=== PATIENT | female | born 1960 | race Caucasian/White ===

== ENCOUNTER 2022-07-23 05:13 | Emergency (ER) | payer OTHER, SELFPAY ==
[2022-07-23] VITALS (10 sets, daily range): BP systolic 124–144; BP diastolic 74–91; PULSE 68–100; RESP 14–24; TEMP 36.5; O2SAT 97–100
--- NOTE | ~2022-07-23 | XR_ITS ---
EXAMINATION: XR chest 2V DATE: 07/23/2022 06:21 INDICATION: Chest pain TECHNIQUE: frontal and lateral views of the chest were obtained. COMPARISON: Chest radiograph dated 03/03/2019 FINDINGS: Calcified nodule in the left midlung zone consistent with old granulomatous disease. No other airspac e opacities, pulmonary edema, pleural effusion or pneumothorax. Mild cardiomegaly. Plate and screw fi xation for lower cervical anterior spinal fusion. IMPRESSION: 1. Mild cardiomegaly. Reviewed, dictated and finalized at location A. IMPRESSION: 1. Mild cardiomegaly.
--- NOTE | 2022-07-23 05:21 | ECG_ITS ---
Measurements Intervals [place] Rate: 81 P: VA: 0 QRS: 12 QRSD: 82 T: 36 QT: 371 QTc: 432 Interpretive Statements ATRIAL FIBRILLATION ABNORMAL ECG COMPARED TO ECG 09/14/2019 09:14:02 ATRIAL FIBRILLATION NOW PRESENT Electronically Signed On 07-23-2022 6:35:35 CDT by Ebenezer Wick D.O.
--- NOTE | 2022-07-23 06:12 | ED.ARRPALP ---
HPI - Arrhythmia/Palpitations General Chief Complaint: Arrhythmia/Palpitations Stated Complaint: patient states i'm in afib Time Seen by Provider: 07/23/22 05:43 History of Present Illness HPI narrative: This is a 61-year-old female with past medical history of paroxysmal A. fib on Eliquis, who presents to the emergency department complaining of not feeling right . Patient states over the last day and a half she has felt increasing fatigue and dyspnea on exertion. This morning approximately an hour prior to arrival she woke at her usual time and noted palpitations. She denies chest pain however her symptoms were concerning and she came in for evaluation. She denies other recent illness and is vaccinated for the coronavirus. Related Data Home Medications Medication Instructions Recorded Confirmed rosuvastatin 10 mg tablet 10 mg PO DAILY 09/08/19 09/08/19 apixaban 5 mg tablet (Eliquis) 5 mg PO BID 09/20/21 Allergies Allergy/AdvReac Type Severity Reaction Status Date / Time sulfamethoxazole Allergy Intermediate Hives Verified 07/23/22 05:41 [From Bactrim] trimethoprim [From Bactrim] Allergy Intermediate Hives Verified 07/23/22 05:41 amoxicillin Allergy Unknown rash- Has Verified 07/23/22 05:41 taken Amoxicillin since. ciprofloxacin Allergy Unknown Nausea Verified 07/23/22 05:41 fluoxetine Allergy Unknown Asthma Verified 07/23/22 05:41 iodine Allergy Unknown Unknown Verified 07/23/22 05:41 Sulfa (Sulfonamide Allergy Unknown Unknown Verified 07/23/22 05:41 Antibiotics) sulfamethizole Allergy Unknown Unknown Verified 07/23/22 05:41 Review of Systems Review of Systems: CONSTITUTIONAL: Denies fever, chills, or sweats. EYES: Denies visual changes, redness, or discharge. ENT: Denies rhinorrhea, congestion, sore throat, or otalgia. CARDIOVASCULAR: Chest pressure, palpitations; chronic edema unchanged from baseline RESPIRATORY: Intermittent cough and dyspnea. GASTROINTESTINAL: Denies abdominal pain, nausea, vomiting, or diarrhea. GENITOURINARY: Denies dysuria or hematuria. SKIN: Denies rash or itching. MUSCULOSKELETAL: Denies back pain, joint pain, or myalgia. NEUROLOGIC: Denies headache, numbness, dizziness, or weakness. PSYCHIATRIC: Denies anxiety or depression. [facility] Past Medical History Medical History Afib Depression Gastric ulcer Hypercholesterolemia Hyperlipemia Hypertension Obesity Surgical History Surgical History Hx of eye surgery states hx of multiple eye surgeries S/P cervical spinal fusion states c4-6 fusion 1998 Family History Family History Grandparent Hypertension Family history of elevated blood lipids Family history of coronary artery disease, Onset Age: 72 Other Family history of malignant melanoma Social History Social History Smoking status: Never smoker Second hand tobacco smoke exposure: No Alcohol intake: current Drinks per week: 0 (rarely a few times a year) Substance use type: does not use Gender identity (if verbalized by the patient): Female Spiritual care concerns: No Agree to blood products: Yes Exam Narrative: GENERAL: Well-developed, well-nourished, appears anxious HEAD: Normocephalic, atraumatic. EYES: PERRLA and EOMI. ENT: Nares clear, no rhinorrhea or epistaxis. Mucous membranes moist. Oropharynx without tonsillar hypertrophy exudate or other lesions. NECK: Supple. No adenopathy or masses. No carotid bruits or JVD CHEST: Clear to auscultation. No respiratory distress. No wheezes rales or rhonchi HEART: Irregularly irregular. No murmur heard. Normal peripheral pulses. ABDOMEN: Soft, nontender, nondistended, normal active bowel sounds. EXTREMITIES: Normal range of motion. No edema
[2022-07-23] MEDS: ASPIRIN 81 MG CHEWABLE TABLET 324 MG PO (06:34)
[2022-07-23 06:44] LABS: Basophils Percent Auto 0.3 % (0.2-1.2); Eosinophils Absolute Auto 0.1 K/mm3 (0-0.3); Eosinophils Percent Auto 1.7 % (0-4.4); Hematocrit 41.9 % (37.0-47.0); Hemoglobin 13.7 g/dL (12.0-15.0); Immature Granulocyte Absolute 0.04 K/mm3 (0.00-0.031); Immature Granulocyte Percent A 0.6 % (0-0.5); Lymphocytes Absolute Auto 2.71 K/mm3 (0.9-3.2); Lymphocytes Percent Auto 40.8 % (18.3-44.2); Mean Corpuscular HGB Conc 32.7 g/dl (32-36); Mean Corpuscular Volume 91.9 fl (80-100); Mean Platelet Volume 8.8 fl (7.4-10.4); Monocytes Absolute Auto 0.6 K/mm3 (0.1-0.6); Monocytes Percent Auto 8.7 % (2.6-8.5); Neutrophils Absolute Auto 3.2 K/mm3 (1.3-6.7); Neutrophils Percent Auto 47.9 % (45.5-73.1); Platelet Count Result 279 k/mm3 (150-375); Red Blood Count 4.56 M/mm3 (4.2-5.4); Red Cell Distribution Width 14.6 % (11.5-14.5); White Blood Count 6.7 K/mm3 (4.5-10.0)
[2022-07-23 06:56] LABS: INR 1.2; Prothrombin Time 14.7 Seconds (11.1-14.7)
[2022-07-23 06:57] LABS: Alanine Aminotransferase 25 U/L (6-35); Albumin Level 4.1 g/dL (3.5-5.1); Alkaline Phosphatase 81 U/L (38-126); Anion Gap 13 mmol/L (8-16); Aspartate Amino Transferase 29 U/L (14-36); Bilirubin,Total 0.4 mg/dL (0.2-1.3); Blood Urea Nitrogen 14 mg/dL (7-17); Calcium 8.7 mg/dL (8.4-10.2); Carbon Dioxide 27 mmol/L (22-30); Chloride 103 mmol/L (98-107); Estimated CRCL calculation 82 ml/min; Estimated Glomerular Filt Rate > 60; Glucose 116 mg/dL (65-110); Potassium 4.1 mmol/L (3.4-5.0); Sodium 143 mmol/L (137-145)
[2022-07-23 07:07] LABS: Troponin I < 0.012 ng/mL (0.000-0.034)
--- NOTE | 2022-07-23 07:11 | PC.NURSE ---
Report given to Bina ACOSTA
[2022-07-23 07:19] LABS: Influenza A QL RT-PCR Negative (Negative); Influenza B QL RT-PCR Negative (Negative); SARS-CoV-2 RNA PCR Negative
[2022-07-23 09:29] LABS: Troponin I < 0.012 ng/mL (0.000-0.034)
== END 2022-07-23 11:05 | disposition home or self-care (01) ==
PROVIDERS: Preventive Medicine Aerospace Medicine; Emergency Provider Emergency Medicine; PCP Family Medicine
DX: R00.2 Palpitations (principal); I48.0 Paroxysmal atrial fibrillation; R53.81 Other malaise; Z23 Encounter for immunization; E78.5 Hyperlipidemia, unspecified; I10 Essential (primary) hypertension; E66.9 Obesity, unspecified; Z68.38 Body mass index [BMI] 38.0-38.9, adult; Z79.01 Long term (current) use of anticoagulants; Z98.1 Arthrodesis status
CPT/HCPCS: 36415; 71046; 80053; 84484; 85025; 85610; 87502; 93005; 99284; A9270; C9803; U0003; U0005

== ENCOUNTER 2023-11-12 09:14 | Outpatient (CLI) | payer OTHER, SELFPAY ==
--- NOTE | ~2023-11-12 | US_ITS ---
EXAMINATION: US pelvic complete w TV DATE: 11/12/2023 09:40 INDICATION: Postmenopausal bleeding TECHNIQUE: Multiple transabdominal and endovaginal sonographic images of the pelvis were obtained. COMPARISON: 08/31/2019 FINDINGS: The uterus measures 9.5 x 4.6 x 5.5 cm. The endometrial complex measures 9 mm, previously 1 4 mm. The ovaries are not visualized however no adnexal abnormality is seen. There is no free fluid i n the pelvis. IMPRESSION: 1. Persistent endometrial thickening which may be due to hyperplasia, polyp, or malignancy. Endometri al sampling is recommended if not previously performed. Reviewed, dictated and finalized at location A. [facility] IMPRESSION: 1. Persistent endometrial thickening which may be due to hyperplasia, polyp, or malignancy. Endometrial sampling is recommended if not previously performed.
== END 2023-11-12 09:15 ==
LOC: MICIMG 09:14
PROVIDERS: PCP Obstetrics & Gynecology; Visit Provider Obstetrics & Gynecology
DX: N95.0 Postmenopausal bleeding (principal)
CPT/HCPCS: 76830; 76856

== ENCOUNTER 2023-12-01 08:37 | Outpatient (CLI) | payer OTHER, SELFPAY ==
[2023-12-01 14:24] LABS: Basophils Absolute Auto 0.1 K/mm3 (0.0-0.1); Basophils Percent Auto 0.6 % (0.2-1.2); Eosinophils Absolute Auto 0.1 K/mm3 (0-0.3); Eosinophils Percent Auto 1.5 % (0-4.4); Hematocrit 51.2 % (37.0-47.0); Hemoglobin 16.3 g/dL (12.0-15.0); Immature Granulocyte Absolute 0.07 K/mm3 (0.00-0.031); Immature Granulocyte Percent A 0.8 % (0-0.5); Lymphocytes Percent Auto 34.5 % (18.3-44.2); Mean Corpuscular HGB Conc 31.8 g/dl (32-36); Mean Corpuscular Hemoglobin 30.1 pg (26-34); Mean Corpuscular Volume 94.5 fl (80-100); Mean Platelet Volume 9.2 fl (7.4-10.4); Monocytes Absolute Auto 0.6 K/mm3 (0.1-0.6); Monocytes Percent Auto 7.1 % (2.6-8.5); Neutrophils Absolute Auto 4.7 K/mm3 (1.3-6.7); Neutrophils Percent Auto 55.5 % (45.5-73.1); Platelet Count Result 358 k/mm3 (150-375); Red Blood Count 5.42 M/mm3 (4.2-5.4); Red Cell Distribution Width 13.7 % (11.5-14.5); White Blood Count 8.4 K/mm3 (4.5-10.0)
[2023-12-01 14:36] LABS: Hemoglobin A1C 6.1 % (<5.7)
[2023-12-01 14:57] LABS: Alanine Aminotransferase 29 U/L (6-35); Albumin Level 4.4 g/dL (3.5-5.1); Alkaline Phosphatase 82 U/L (38-126); Anion Gap 10 mmol/L (8-16); Aspartate Amino Transferase 51 U/L (14-36); Bilirubin,Total 0.7 mg/dL (0.2-1.3); Blood Urea Nitrogen 15 mg/dL (7-17); Calcium 9.4 mg/dL (8.4-10.2); Carbon Dioxide 27 mmol/L (22-30); Chloride 102 mmol/L (98-107); Cholesterol 191 mg/dL (0-200); Estimated Glomerular Filt Rate > 60; Glucose 107 mg/dL (65-110); HDL Direct 47 mg/dL; Potassium 4.1 mmol/L (3.4-5.0); Sodium 139 mmol/L (137-145); Triglycerides 200 mg/dL (<150)
[2023-12-01 15:08] LABS: LDL Cholesterol Direct 95 mg/dL
== END 2023-12-01 08:38 | disposition home or self-care (01) ==
LOC: ANHGOSHLAB 08:38
PROVIDERS: PCP Family Medicine; Visit Provider Family Medicine
DX: E78.5 Hyperlipidemia, unspecified (principal); I48.0 Paroxysmal atrial fibrillation; I48.91 Unspecified atrial fibrillation; E66.9 Obesity, unspecified; R53.83 Other fatigue
CPT/HCPCS: 36415; 80053; 80061; 83036; 84443; 85025

== ENCOUNTER 2024-03-17 11:40 | Outpatient (CLI) | payer OTHER, SELFPAY ==
[2024-03-17 19:37] LABS: Basophils Percent Auto 0.6 % (0.2-1.2); Eosinophils Absolute Auto 0.1 K/mm3 (0-0.3); Eosinophils Percent Auto 1.7 % (0-4.4); Hematocrit 44.1 % (37.0-47.0); Hemoglobin 14.2 g/dL (12.0-15.0); Immature Granulocyte Absolute 0.03 K/mm3 (0.00-0.031); Immature Granulocyte Percent A 0.4 % (0-0.5); Lymphocytes Absolute Auto 2.35 K/mm3 (0.9-3.2); Lymphocytes Percent Auto 33.5 % (18.3-44.2); Mean Corpuscular HGB Conc 32.2 g/dl (32-36); Mean Corpuscular Hemoglobin 30.1 pg (26-34); Mean Corpuscular Volume 93.6 fl (80-100); Mean Platelet Volume 9.3 fl (7.4-10.4); Monocytes Absolute Auto 0.6 K/mm3 (0.1-0.6); Monocytes Percent Auto 9.1 % (2.6-8.5); Neutrophils Absolute Auto 3.8 K/mm3 (1.3-6.7); Neutrophils Percent Auto 54.7 % (45.5-73.1); Platelet Count Result 302 k/mm3 (150-375); Red Blood Count 4.71 M/mm3 (4.2-5.4); Red Cell Distribution Width 13.2 % (11.5-14.5)
[2024-03-17 20:09] LABS: Iron 129 ug/dL (37-170)
[2024-03-17 20:18] LABS: Percent Iron Saturation 46 % (20-50)
[2024-03-17 20:23] LABS: Vitamin D 25 Hydroxy 36.3 ng/mL
[2024-03-18 16:48] LABS: Immunoglobulin A 180 mg/dL (70-320); Immunoglobulin G 1240 mg/dL (600-1540); Immunoglobulin M 369 mg/dL (50-300)
== END 2024-03-17 11:41 | disposition home or self-care (01) ==
LOC: ANHGOSHLAB 11:41
PROVIDERS: PCP Family Medicine; Visit Provider Family Medicine
DX: G93.32 Myalgic encephalomyelitis/chronic fatigue syndrome (principal); R53.83 Other fatigue; I69.314 Frontal lobe and executive function deficit following cerebral infarction; I48.0 Paroxysmal atrial fibrillation; U09.9 Post COVID-19 condition, unspecified; E55.9 Vitamin D deficiency, unspecified
CPT/HCPCS: 36415; 82306; 82784; 83540; 83550; 85025

== ENCOUNTER 2024-08-05 09:03 | Outpatient (CLI) | payer OTHER, SELFPAY ==
--- NOTE | 2024-08-05 12:08 | WPDSIXMINUTE ---
Six Minute Walk Procedure Procedure Performed Pulmonary Stress Test (6 min walk) Six Minute Walk Six Minute Walk: This is a 6 minute walk test. The test was performed and interpreted in accordance with the 2014 ERS/ATS task force guidelines. Findings: The patient's resting room air oxygen saturation measured by pulse oximetry was 97% and heart rate was 77 bpm. Patient ambulated for 396 meters and oxygen saturation remained 89 to 94%. Heart rate at the end of the study was 105 bpm. The patient did not qualify for supplemental oxygen at rest or with ambulation. There are no prior studies for comparison.
--- NOTE | 2024-08-05 12:09 | WPDPFTINT ---
PFT Procedure Performed PFT Procedure Performed Spirometry with Pre/Post Bronchodilator Plethysmography (Lung Vol) Diffusing Cap (DLCO) Flow Vol Loop PFT Interpretation This is a pulmonary function test with pre and post-bronchodilator spirometry, plethysmography and diffusing capacity. The test was performed and results interpreted in accordance with the 2019 and 2005 ATS/ERS Task Force guidelines respectively using the Global Lung Function Initiative-2012 reference equations. Patient demonstrated good effort and cooperation. Reproducibility criteria were met. The quality of the pre bronchodilator spirometry maneuver was Grade A and post bronchodilator spirometry maneuver was Grade A. Findings: Spirometry: The contour the inspiratory and expiratory flow tracing are normal. The pre bronchodilator FVC is 2.93 L, 86% predicted. The pre bronchodilator FEV1 is 2.24 L, 84% predicted. The pre bronchodilator FEV1: FVC ratio is 76%. The post bronchodilator FVC is 2.99 L, representing a 2% increase. The post bronchodilator FEV1 is 2.42 L, representing an 8% increase. The post bronchodilator FEV1: FVC ratio is 81%. Plethysmography: The total lung capacity is 3.90 L, 70% predicted. The functional residual capacity is 1.61 L, 51% predicted. The residual volume is 0.97 L, 43% predicted. Diffusing capacity: The diffusing capacity unadjusted for hemoglobin and carboxyhemoglobin is 17.2, 76% predicted. The diffusing capacity adjusted for alveolar volume is 4.37, 104% predicted. Impression: There is a mild restrictive ventilatory abnormality with a normal FEV1. The spirometry is normal without evidence of an obstructive abnormality. There is no significant improvement after inhaling a single dose of albuterol. The diffusing capacity is normal. There are no prior studies for comparison
== END 2024-08-05 09:04 | disposition home or self-care (01) ==
PROVIDERS: PCP Family Medicine; Visit Provider Internal Medicine Critical Care Medicine
DX: R06.09 Other forms of dyspnea (principal); U09.9 Post COVID-19 condition, unspecified; J98.4 Other disorders of lung
CPT/HCPCS: 94060; 94618; 94726; 94729

== ENCOUNTER 2025-01-22 20:06 | Emergency (ER) | payer OTHER, SELFPAY ==
[2025-01-22 20:08] VITALS: BP 144/78; PULSE 73; RESP 20; TEMP 36.6; O2SAT 100
--- OUTSIDE RECORDS SUMMARY | 2025-01-22 20:09 | XMS_ITS | Encounter Summary ---
Author Organization [facility] Address 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
--- OUTSIDE RECORDS SUMMARY | 2025-01-22 20:09 | XMS_ITS | Continuity of Care Document ---
Author Organization [facility] Address [address] [place] [address] Phone Care Team Providers Care Puttier Name Role Phone Jamil SALAMANCA, Abdoul Unavailable Unavailable Allergies, Adverse Reactions, Alerts Substance Reaction Status Criticality FLUOXETINE HCL Active No Informatio n IODINE Active No Information CIPROFLOXACIN HCL Active No Informa tion ciprofloxacin Active No Information Medications Medication Instructions Dosage Effective Dates (start - stop) Status Comments Celebrex 200 mg Cap take 1 (200MG) by or al route every day as needed 200 MG - Active Procedures Procedure Date X-ray exam both knees, standing 013 X-ray exam knee, 1 or 2 views 3 Global/Postop followup visit Asp/inject major joint or bursa 013 Synvisc 3 Dose Asp/inject major joint or bursa 013 Depo Medrol Methylprednisolone 40 MG inj Global/Postop followup visit Global/Postop followup visit Global/Postop followup visit Global/Postop followup visit Meniscectomy Med OR Lat X-ray exam both knees, standing 013 X-ray exam knee, 1 or 2 views 3 Office/outpatient visit,new, mod 2012 Advance Directives Directive Yes / No Effective Date File Name No Information Encounters Encounter Description Practice Location Reason(s) For Visit Diagnoses Date Provider Providers Copied on Encounter [facility], [address], [id number], [place] tel:[phone] [facility] No Information Nov 3 Jamil Schreiber. [address], [id number] , [place]. tel:[phone] [facility], [address], [id number], [place] tel:[phone] [facility] right knee scope (chief complaint) Other Chronic PainJOINT PAIN-L/LEGART HROPATHY NOS-L/LEGCHON DROMALACIA PATELLAE 3 Jamil Schreiber. [address], [id number] , [place]. tel: [phone] [facility], [address], [id number], [place] tel:[phone] [facility] post op right knee socpe PMM (chief complaint) TEAR MED MENISC KNEE-CURARTHR OPATHY NOS-L/LEG Sep-3 0 3 Jamil Schreiber. [address], [id number] , [place]. tel: [phone] [facility], [address], [id number], [place] tel:[phone] [facility] post op right knee scope (chief complaint) TEAR MED MENISC KNEE-CUR Sep-0 3 Jamil Schreiber. [address], [id number] , [place]. tel: [phone] [facility], [address] [place] [address], [id number], [place] tel:[phone] [facility] TEAR MED MENISC KNEE-CURJOINT PAIN-L/LEG Sep-0 3 Jamil Schreiber. [address], [id number] , [place]. tel: [phone] [facility], [address] [place] [address], [id number], [place] tel:[phone] [facility] [facility] post op right knee scope (chief complaint) TEAR MED MENISC KNEE-CUR 3 Jamil Schreiber. 1050 [facility], [address], [id number] , [place]. tel: [phone] [facility], [address], [id number], [place] [phone] [facility] TEAR MED MENISC KNEE-CURCHOND ROMALACIA PATELLAE 3 Jamil Schreiber. [address] [place] [address], [place] [address], [place], [place], [id number] , [place]. tel: [phone] Office/outpat ient visit,[facility], [address], [id number], tel:[phone] [facility] [employer] [facility] right knee pain (chief complaint) PAIN IN LIMBDERANG MED MENISCUS NEC 3 Jamil Schreiber. [address] [place] [address], [place] [address], [place], [place], [id number] , [place]. tel: [phone] Family History Family Member Type Diagnosis Age At Onset No Information Immunizations Vaccine Date Status Comments Flu (split) (3 yrs or older) administered Source: New Immunization Record Payers Payer name Insurance type Covered republican ID Authoriza tion(s) [facility] CI [id number] [address] [place] [employer] [facility] [id number] Social History Type Description Quantity Date Captured Comments Sex Female Smoking Status No Information Chief Complaint And Reason For Visit No Information Reason For Referral Reason For Referral No Information Plan Of Treatment Date Type Action Status Referral Ordered: X-ray exam knee, 1 or 2 views Right ordered Referral Ordered: Synvisc One Right knee Appointment date/timeframe: 09/05/2013 ordered Referral Ordered: X-ray exam knee, 1 or 2 views RT ordered Referral Ordered: X-ray exam both knees, standing ordered History Of Present Illness Encounter Date Complaint History Of Prese nt Illness No Information Functional Status Date Functional Assessmen t No Information Instructions Date Instruction Additional Infor annalisaion Increase activity level Increase activity level Protective activity Assessments Type Assessment Date No Information Patient Care Teams Name Effective Dates (start - stop) Status Members No Information
--- OUTSIDE RECORDS SUMMARY | 2025-01-22 20:09 | XMS_ITS | Continuity of Care Document ---
Author Organization [facility] Address [address] [place] [address] [place] [address] Phone Care Team Providers Care Reinforcing Metal Worker Name Role Phone Garrison Chung Unavailable Unavailable Procedures Procedure Date Post-op Follow-up Visit After Cataract Laser Surgery Office/outpatient Visit, Est Office/outpatient Visit, Est Post-op Follow-up Visit Post-op Follow-up Visit Post-op Follow-up Visit Post-op Follow-up Visit Remove Cataract, Insert Lens Eye Exam, New Patient Echo Exam Of Eye Advance Directives Directive Yes / No Effective Date File Name No Information Encounters Encounter Description Practice Location Reason(s) For Visit Diagnoses Date Provider Providers Copied on Encounter [facility], [address] [place] [address] [address], [place], [place], [id number], [place] [phone] [facility] No Information [address] , [address], [place], [address], [place]. tel:[phone] [facility], [address] [place] [address] [address], [place], [place], [id number], [place] tel:[phone] [facility] No Information [address], [place], [address], [place]. tel:[phone] Office/outpat ient Visit, Est [facility], [address], [place], [place], [id number], [place] tel:[phone] [facility] No Information [address] Edward. [address], [place], [place], [facility], [place]. tel:[phone] Office/outpat ient Visit, Est [facility], [address] [place] [address] [address], [place], [place], [id number], [place] tel:[phone] [facility] No Information [address] Max[address], [place], [place], [facility], [place]. tel:[phone] [facility], [address] [place] [address] [address], [place], [place], [id number], [place] tel:[phone] [facility] No Information [address], [place], [facility], [place]. tel:[phone] [facility], [address] [place] [address] [address], [place], [place], [id number], [place] tel:[phone] [facility] No Information 8 [address]. [address], [place], [place], [facility], [place]. tel:[phone] [facility], [address] [place] [address] [address], [place], [place], [id number], [place] tel:[phone] [facility] No Information [address] , [address], [place], [place], [facility], [place]. tel:[phone] [facility], [address] [place] [address] [address], [place], [place], [id number], [place] tel:[phone] [facility] No Information Dec-1 2-[address] [facility] [address] , [address], [place], [place], [facility], . tel:[phone] [facility], [address], [place], [place], [id number], [place] tel:[phone] [facility] No Information Dec-1 1-[address] [facility] [address] [address] , [address], [place], [place], [facility], [place]. tel:[phone] [facility], [address], [place], [place], [id number], tel:[phone] [facility] No Information Dec-0 3-[address] [facility] [address] , [address], [place], [place], [facility], [place]. tel:[phone] Family History Family Member Type Diagnosis Age At Onset No Information Payers Payer name Insurance type Covered green party ID Authoriza tion(s) No Information Social History Type Description Quantity Date Captured Comments Sex Female Smoking Status No Information Chief Complaint And Reason For Visit No Information Reason For Referral Reason For Referral No Information History Of Present Illness Encounter Date Complaint History Of Prese nt Illness No Information Functional Status Date Functional Assessmen t No Information Instructions Date Instruction Additional Infor mation No Information Assessments Type Assessment Date No Information Patient Care Teams Name Effective Dates (start - stop) Status Members No Information
--- OUTSIDE RECORDS SUMMARY | 2025-01-22 20:09 | XMS_ITS | Encounter Summary ---
Author Organization [facility] Address [address] [place] [address] Care Team Providers Care Automated Process Operator Name Role Phone Javier Gutierrez MD Primary Care Provider [phone] Encounter Details Date Type Department Care Team (Late st Contact Info) Description 11/11/2024 Hospital Encounter [facility] [address] [place] [address] Tessie Lopez MD [address] [facility] [address] [place] [address] Social History Tobacco Use Types Packs/Day Years Used Date Smoking Tobacco: Never Smokeless Tobacco: Never Alcohol Use Standard Drinks/Week Comments Yes 1 (1 standard drink = 0.6 oz pur e alcohol) socially rarely Social Connection and Isolat ion Panel [NHANES] Answer Date Recorded In a typical week, how many times do you talk on the phone with family, friends, or neighbors? More than three times a week 03/11/2023 How often do you get togethe r with friends or relatives? More than three times a week 03/11/2023 How often do you attend chur ch or taoist services? More than 4 times per year 03/11/2023 Do you belong to any clubs o r organizations such as voodoo groups, unions, fraternal or athletic groups, or school groups? No 03/11/2023 How often do you attend meet ings of the clubs or organizations you belong to? Never 03/11/2023 Are you , , di vorced, , never , or living with a partner? 03/11/2023 AUDIT-C Answer Date Recorded Q1: How often do you have a drink containing alcohol? Never 03/11/2023 Q2: How many drinks containi ng alcohol do you have on a typical day when you are drinking? Patient does not drink Frequency of Binge Drinking Not on file 01/2023 Overall Financial Resource Strain (CARDIA) Answe r Date Recorded How hard is it for you to pa y for the very basics like food, housing, medical care, and heating? Not hard at all 03/11/2023 PRAPARE - Transportation Answer Date Re corded In the past 12 months, has l ack of transportation kept you from medical appointments or from getting medications? No 01/2023 In the past 12 months, has l ack of transportation kept you from meetings, work, or from getting things needed for daily living? No 03/11/2023 Personal Safety Answer Date Recorded Have you ever been in or are you currently in a harmful physical or emotional relationship or is someone making you feel afraid or unsafe? 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 Gender Identity Not on file Sexual Orientation Not on file documented as of this encounter Plan of Treatment Scheduled Orders Name Type Priority Associated Diagnoses Order Schedule Cardiac Catheterization Cardiac Cath Routine Once for 1 Occurrences starting 11/11/2024 until 11/11/2024 documented as of this encounter Visit Diagnoses Not on filedocumented in this encounter Care Teams Automated Process Operator Relationship Specialty Start Date End Date Javier Gutierrez MD [address] [facility] [address] [address] PCP - General Family Medicine 07/19/24 documented as of this encounter
--- OUTSIDE RECORDS SUMMARY | 2025-01-22 20:09 | XMS_ITS | Encounter Summary ---
Author Organization [facility] Healthcare Address [address] [place] [address] Care Team Providers Care Permit Specialist Name Role Phone Javier Gutierrez MD Primary Care Provider [phone] Reason for Visit * Reason Onset Date Comments monitor results 01/03/2025 Encounter Details Date Type Department Care Team (Late st Contact Info) Description 01/03/[address] [facility] Medical Group Cardiology [address] [place] [address] Judson Bahena MD [facility] [address] [place] [address] monitor results Social History Tobacco Use Types Packs/Day Years [...] often do you attend chur ch or adventist services? More than 4 times per year [...] on file Legal Sex Female 2:20 AM [employer] Gender Identity Not on file Sexual Orientation Not on file documented as of this encounter Miscellaneous Notes * Telephone Encounter - Zaira Arriaga - 01/19/2025 10:02 AM CDT Pt called and stated that she still has not received a response from the call from 01/03 in regard to her results and is still having the slower HR. I apologized to pt for the extended wait and that Iwill send the message to the [facility] to at least get initial results. Pt verbally understood. 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 Pt still having some slow HR's and would like to know what to donext. [employer] documented in this encounter Plan of Treatment Not on file documented as of this encounter Visit Diagnoses Not on filedocumented in this encounter Care Teams Permit Specialist Relationship Specialty Start Date End Date Javier Gutierrez MD [facility] [address] [address] PCP - General Family Medicine 07/19/24 documented as of this encounter
--- OUTSIDE RECORDS SUMMARY | 2025-01-22 20:09 | XMS_ITS | Clinical Summary ---
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 [employer] Gender Identity Not on file Sexual Orientation Not on file Plan of Treatment Health Maintenance Due Date Last Done Comments DTAP/TDAP/TD VACCINES (1 - Tdap) 1978 BREAST CANCER SCREENING 1999 COLORECTAL SCREENING 2004 Colorectal Cancer Screening 2004 FIT-DNA Q 3 years 2004 FIT/FOBT Q 1 year 2004 Flex Sig/CT Colonography Q 5 years 2004 PNEUMOCOCCAL VACCINE 50+ YEARS (1 of 1 - PCV) 10/14/20 09 ZOSTER VACCINE (1 of 2) 2009 INFLUENZA VACCINE (#1) 2024 OSTEOPOROSIS SCREENING 2024 RSV VACCINE (60+ or ) (1 - 1-dose 75+ series) 2034 Care Teams Consulting Nurse Relationship Specialty Start Date End Date Javier Gutierrez MD [address] [place] [id number] PCP - General 10/07/04
--- OUTSIDE RECORDS SUMMARY | 2025-01-22 20:09 | XMS_ITS | Referral Summary ---
Author Organization [facility] Address [address] [place] [address] Care Team Providers Care Clinical Informatics Director Name Role Phone Javier Gutierrez MD Primary Care Provider [phone] Encounters Date Type Department Care Team Description 01/03/2025 Telephone [facility] [address] [place] [phone] Judson Bahena MD monitor results 12/13/2024 1:00 PM COMPUTER TESTER Ancillary Procedure [facility] [address] [place] [phone] PAF (paroxysmal atrial fibrillation) (HCC) 12/13/2024 11:30 AM COMPUTER TESTER Office Visit [facility] [address] [place] [phone] Judson Bahena MD PAF (paroxysmal atrial fibrillation) (HCC) (Primary Dx); Status post radiofrequency ablation (RFA) operation for arrhythmia; CAD in [place] artery; Hyperlipidemia LDL goal <100; Obesity (BMI 30-39.9); Dependent edema 11/15/2024 8:00 AM COMPUTER TESTER - 11/15/2024 9:20 AM COMPUTER TESTER Surgery [facility] [place] [address] Tessie Lopez MD LEFT HEART CATHETERIZATION WITH CORONARY ANGIOGRAPHY AND WITH OR WITHOUT LEFT VENTRICULOGRAM [id number] 11/15/2024 7:07 AM COMPUTER TESTER - 11/15/2024 12:29 PM COMPUTER TESTER Hospital Encounter [facility] [address] [place] [phone] Tessie Lopez MD Discharge Disposition: Discharge to home or self care 11/11/2024 Hospital Encounter [facility] [address] [phone] Tessie Lopez MD 11/11/2024 2:07 PM COMPUTER TESTER - 11/11/2024 7:46 PM COMPUTER TESTER Hospital Encounter [facility] [address] [place] [phone] Tessie Lopez MD SOB (shortness of breath) Discharge Disposition: Discharge to home or self care 11/08/[address] [facility] [address] [facility] [address] [place] [phone] Judson Bahena MD Letter for School/Work 11/07/2024 9:00 AM COMPUTER TESTER Lab [facility] Outpatient Lab [address] [place] [phone] SOB (shortness of breath) from Last 3 Months Allergies Active Allergy Reactions Criticality Noted Date Comments Ciprofloxacin Itching,Rash Medium Fluoxetine Palpitations Low Sulfa (Sulfonamide Antibiotics) Itching,Rash Medium Medications * This document contains information received from the source organization and may not represent a complete record from that organization. metoprolol tartrate (LOPRESSOR) 25 mg immediate release tablet TAKE 1/2 TABLET BY MOUTH EVERY MORNING AND 1 TABLET EVERY EVENING 135 tablet 3 07/04/2024 Active Eliquis 5 mg tablet TAKE 1 TABLET(5 MG) BY MOUTH TWICE DAILY 60 tablet 11 08/02/2024 Active rosuvastatin (CRESTOR) 10 mg tablet TAKE 1 TABLET(10 MG) BY MOUTH DAILY 90 tablet 3 11/01/2024 Active guaiFENesin ER (MUCINEX) 600 mg 12 hr tablet Take 2 tablets (1,200 mg total) by mouth 2 (two) times a day as needed for cough Active furosemide (LASIX) 40 mg tablet Take 1 tablet (40 mg total) by mouth daily 30 tablet 11 11/15/2024 Active losartan (COZAAR) 25 mg tablet Take 1 tablet (25 mg total) by mouth daily 30 tablet 11/15/2024 6 Active Active Problems Problem Noted Date Diagnosed Date CAD in [place] artery 12/13/2024 Assessment & Plan (12/13/2024 12:38 PM COMPUTER TESTER): Doing well without angina. The patient is aware of the need for Primary prevention through aggressive CV risk factor modifications to include: blood pressure control, LDL control, daily exercise (per guidelines), and achieving and maintaining ideal body weight, etc. SOB (shortness of breath) 10/20/2024 Obesity (BMI 30-39.9) 07/19/2024 Assessment & Plan (12/13/2024 12:36 PM COMPUTER TESTER): Discussed meaningful weight loss thru lifestyle modifications, including dietary changes and weight loss. Advised to decrease caloric intake, eat a low-fat/cholesterol and low-salt diet. Assessment & Plan (07/19/2024 1:41 PM CDT): Discussed meaningful weight loss thru lifestyle modifications, including dietary changes and weight loss. Advised to decrease caloric intake, eat a low-fat/cholesterol and low-salt diet. Also discussed surgical and pharmacologic therapies for weight loss in device further discussions with her PCP and/or Weight Loss Clinic. Status post radiofrequency a blation (RFA) operation for arrhythmia 07/19/2024 Assessment & Plan (12/13/2024 12:36 PM COMPUTER TESTER): Per Dr Brambila. Assessment & Plan (07/19/2024 1:39 PM CDT): Good result from PVI procedure. Will continue AC. Fatigue 12/01/2023 Morbid obesity with BMI of 40.0-44.9, adult 06/10 Assessment & Plan (07/07/2023 11:00 AM CDT): Discussed meaningful weight loss thru diet/exercise. Should also consider PSG to R/O BLAISE as cause for her Sx. She is considering bariatric surgery. COVID-19 virus infection 07/07/2023 Postmenopausal 07/01/2023 Paroxysmal atrial fibrillation 06/29/2023 Dependent edema 06/19/2023 Assessment & Plan (12/13/2024 12:43 PM COMPUTER TESTER): Improved on Lasix. Assessment & Plan (07/19/2024 1:42 PM CDT): Only when on feet a long time. Will try low dose HCTZ 12.5 mg every day on work days. Assessment & Plan (07/07/2023 10:58 AM CDT): As above. Worse at work. OK at home. Anticoagulation management encounter 04/12/2023 TIA (transient ischemic attack) 03/11/2023 Acute CVA (cerebrovascular accident) 03/11/2023 Asthma 03/12/2020 Hyperlipidemia LDL goal <100 03/12/2020 Assessment & Plan (12/13/2024 12:36 PM COMPUTER TESTER): The LDL is well controlled on current pharmacotherapy which will be continued. Assessment & Plan (07/19/2024 1:40 PM CDT): The LDL is well controlled on current pharmacotherapy which will be continued. Assessment & Plan (07/07/2023 10:57 AM CDT): The LDL is well controlled on current pharmacotherapy which will be continued. Acute chest pain 03/11/2020 BMI 40.0-44.9, adult 09/15/2018 Morbid obesity 09/15/2018 PAF (paroxysmal atrial fibrillation) 07/03/2017 Assessment & Plan (12/13/2024 4:43 PM COMPUTER TESTER): She has had recurrent AF Sx, and bradycardia with presyncope. She has Apple Watch but limited EKG's are available. Will check event monitor. She may need to see Dr. Brambila in the near future if she has recurrent presyncope from bradycardia. She may also be having non perfusion atrial or ventricular ectopy with perceived slow pulse. Assessment & Plan (07/19/2024 1:40 PM CDT): Per EP - continued observation of minimal AF recurrences. Reviewed Watchman device in preliminary way. Needs weight loss and PSG, per Clarissa. Assessment & Plan (07/07/2023 11:00 AM CDT): Planning RFA in near future with Dr Brambila. She is hopeful that she will feel more energetic after SR restored. Discussed cardiac and non-cardiac causes for her fatigue. Assessment & Plan (04/12/2023 12:35 PM CDT): The patient has symptomatic paroxysmal (with recent transition to persistent) atrial fibrillation. After considering possible options for manage, the patient is not in favor of antiarrhythmic pharmacologic therapy. As an alternative, we discussed catheter ablation. We discussed the rationale for atrial fibrillation ablation, including the steps involved in ablation. I detailed the risks of the procedure, including vascular injury/hematoma, myocardial injury/perforation, stroke, myocardial infarction, pulmonary vein stenosis, thermal esophageal injury, phrenic nerve injury and . I estimated a 70% chance of freedom from long-term atrial arrhythmia, and the patient understands that occasionally a second procedure is necessary. Because of the high likelihood that she will presenting atrial fibrillation, we will arrange for a transesophageal echocardiogram to be performed immediately prior in order to exclude the presence of intracardiac thrombus. The patient has a [id number] score of 3. I have therefore recommended continued anticoagulation for thromboprophylaxis. My office will make the appropriate arrangements. From: November, Vincenzo LS, Isis JS, Naveed H, Librado RUMA, Isaac JE, Iraj ALYSSA, Billy PT, Yael SALAMANCA, [place], Jase KT, Shiela RL, Angel WG, Po PJ, Becca CM, Abril CW. 2014 AHA/ACC/HRS guideline for the management of patients with atrial fibrillation: a report of the [place] College of Cardiology/[place] Heart Association Task Force on Practice Guidelines and the Heart Rhythm Society. J Am Kerry Cardiol 2014. 6.3. AF Catheter Ablation to Maintain Sinus Rhythm: Recommendations Class IIA. In patients with recurrent symptomatic paroxysmal AF, catheter ablation is a reasonable initial rhythm control strategy prior to therapeutic trials of antiarrhythmic drug therapy, after weighing risks and outcomes of drug and ablation therapy ([phone]). (Level of Evidence: B) Assessment & Plan (07/03/2017 10:05 AM CDT): Paroxysmal atrial fibrillation. Patient has frequent PAF documented on event monitor with rapid rates. Of note she is not symptomatic during all episodes, but she does have symptoms that are likely due to Af. Chads 2 score equals 0. Chads Vasc equals 1 (gender); thus, anticoagulation is not recommended. Normal LV function Plan Flecainide 150 mg b.i.d. Metoprolol XL 50 mg q.day If patient is diagnosed with CAD, then will change drug therapy. It appears that the abnormality on recent scan is nonspecific and mild. Aspirin Immunizations Immunization Administration Dates Next Due Influenza, Trivalent, Preservative Free, Intramu scular 09/14/2024 Social History Tobacco Use Types Packs/Day Years Used Date Smoking Tobacco: Never Smokeless Tobacco: Never Tobacco Cessation:Counseling Given: Not Answered Alcohol Use Standard Drinks/Week Comments Yes 1 [...] week 03/11/2023 How often do you attend [facility] or voodoo services? More than 4 times per year 03/11/2023 Do you belong to any clubs o r organizations such as holiness groups, unions, fraternal or athletic groups, or [...] on file Legal Sex Female 2:20 AM COMPUTER TESTER Gender Identity Not on file Sexual Orientation Not on file Last Filed Vital Signs Vital Sign Reading Time Taken Comments Blood Pressure 128/70 12/13/2024 11:51 AM COMPUTER TESTER Pulse 75 12/13/2024 11:51 AM COMPUTER TESTER Temperature 36.7 C (98.1 F) 11/15/2024 7:00 AM COMPUTER TESTER Respiratory Rate 16 11/15/2024 12:15 PM COMPUTER TESTER Oxygen Saturation 98% 12/13/2024 11:51 AM COMPUTER TESTER Inhaled Oxygen Concentration - - Weight 121 kg (266 lb 12.8 oz) 12/13/2024 11:51 AM COMPUTER TESTER Height 171.5 cm (5' 7.5 ) 12/13/2024 11:51 AM CS T Body Mass Index 41.17 12/13/2024 11:51 AM COMPUTER TESTER Plan of Treatment Not on file Medical Devices Implanted Type Area Welfare Interviewer Device Identifier Shelf Expiration Date Model / Serial / Lot [employer] Vascade Mvp 6-12fr Venous Closure [id number] - [id number] - [id number] Implanted:Qty: 1 on 12/30/2023 by Shady Brambila MD at [facility] [employer] 09/29/2025 800-612C-1 0U / [id number] / [id number] [employer] Vascade Mvp 6-12fr Venous Closure [id number] - [id number] - [id number] Implanted:Qty: 1 on 12/30/2023 by Shady Bramibla MD at [facility] [employer] 09/10/2025 800-612C-1 0U / [id number] / [id number] [employer] Vascade Mvp 6-12fr Venous Closure [id number] - [id number] - [id number] Implanted:Qty: 1 on 12/30/2023 by Shady Brambila MD at [facility] [employer] 09/07/2025 800-612C-1 0U / [id number] / [id number] [employer] Device Closure Vascade Od5 Fr Femoral Artery [id number] - [id number] - [id number] Implanted:Qty: 1 on 12/30/2023 by Shady Brambila MD at [facility] [employer] 09/22/2025 [id number] / [id number] / [id number] Procedures Procedure Name Priority Date/Time Associated Diagnosis Comments LEFT HEART CATHETERIZATION WITH CORONARY ANGIOGRAPHY AND WITH AND WITHOUT LEFT VENTRICULOGRAM Routine 11/15/2024 9:48 AM COMPUTER TESTER EGFR Routine 11/07/2024 9:21 AM COMPUTER TESTER SOB (shortness of breath) DIFFERENTIAL AUTO Routine 11/07/2024 9:2 1 AM COMPUTER TESTER SOB (shortness of breath) PROTIME-INR Routine 11/07/2024 9:21 AM COMPUTER TESTER SOB (shortness of breath) CBC WITH AUTO DIFFERENTIAL Routine 11/07/2024 9:21 AM COMPUTER TESTER SOB (shortness of breath) BASIC METABOLIC PANEL Routine 11/07/2024 9:21 AM COMPUTER TESTER SOB (shortness of breath) LEFT HEART CATHETERIZATION WITH CORONARY ANGIOGRAPHY AND WITH OR WITHOUT LEFT VENTRICULOGRAM [id number] SOB (shortness of breath) from Last 3 Months Results * LEFT HEART CATHETERIZATION WITH CORONARY ANGIOGRAPHY AND WITH AND WITHOUT LEFT VENTRICULOGRAM (11/15/2024 9:48 AM COMPUTER TESTER) Anatomical Region Laterality Modality X-Ray Angiograph y Narrative 11/15/2024 10:38 AM COMPUTER TESTER Images from the original result were not included. [facility] [address] [place] [address], [id number], [address] Left Heart Catheterization Procedure Report 64 year old female with dyspnea, abnormal stress test referred for left heart catheterization. Access:6F Right Radial Artery Catheter:JL 3.5, JR 4, and Pigtail Closure:TR band Anticoagulation: 5000 Units Heparin Contrast:40 ml Optiray Specimens: none Estimated blood loss: minimal Surgeon: Tessie Lopez MD Sedation: 1mg versed, 75mcg fentanyl Procedures performed: Left heart catheterization Post Operative Diagnosis Post Op Dx: Non obstructive CAD Elevated LVEDP 27mm Hg Procedural details: After risks, benefits, and alternatives to the procedure were explained to the patient, they agreed to proceed. After signing informed consent the patient was brought to the cardiac catheterization laboratory. There were prepped and draped in sterile fashion. A 6 [place] sheath was inserted in the Right Radial Artery using the modified Seldinger technique. We then performed selective coronary angiography using various catheters. We then crossed the aortic valve and measured pressures. At completion of the case a TR Band was deployed with good hemostasis achieved. The patient tolerated the procedure well with no complaints and was transferred to the floor for further monitoring and care. Coronary Findings: LMT: Very short vessel with mild disease LAD: Large caliber vessel giving rise to 3 medium caliber diagonal branch before terminating at the apex. There was 30% diffuse stenosis of the prox-mid LAD. LCX: Large caliber, non-dominant vessel giving rise to 1 medium caliber OM branch. There was a 30% ostial LCx stenosis and mild diffuse disease of the LCx system. RCA: Large caliber, dominant vessel giving rise to a PDA and rPL branches. There was mild diffuse disease throughout the RCA. Hemodynamic Findings: LV: 158/27 mm Hg Ao: 150/60 mm Hg Conclusions: 1) Non-obstructive coronary artery disease. 2) Elevated left-sided filling pressures (LV-EDP 27 mmHg). Recommendations: - Optimal medical therapy for CAD per current ACC/AHA guidelines - Start lasix 40mg daily and losartan 25mg daily given LVEDP 27 mmHg - TR band x2 hours Tessie Lopez MD 11/15/2024 us Tessie Lopez MD CV CARDIAC CATH PROCEDURES F inal Result * eGFR (11/07/2024 9:21 AM COMPUTER TESTER) eGFR >90 >=60 mL/min/1. 73 m2 Comment: Interpretive Data Reference Interval Normal >/= 90 mL/min/1.73m2 Mildly decreased* 60 - 89 mL/min/1.73m2 Mildly to moderately decreased 45 - 59 mL/min/1.73m2 Moderately to severely decreased 30 - 44 mL/min/1.73m2 Severely decreased 15 - 29 mL/min/1.73m2 Kidney Failure < 15 mL/min/1.73m2 *Relative to young adult level Estimated glomerular filtration rate is determined by the 2020 CKD-EPI equation recommended by the National Kidney Foundation (A Unifying Approach to GFR Estimation: Recommendations of the NKF-ASK Task Force on Reassessing the Inclusion of Race in Diagnosing Kidney Disease, JASN 2020). The CKD-EPI equation should not be used for patients with unstable renal function and has not been validated in children and those over 70. Current interpretive data was last reviewed 2021. Blood 11/07/2024 9:21 AM COMPUTER TESTER 11/07/2024 9:24 AM COMPUTER TESTER us Tessie Lopez MD LAB BLOOD ORDERABLES Final R esult [facility] [address] Department [place] [address] * Differential, auto (11/07/2024 9:21 AM COMPUTER TESTER) Neutrophil abs 4.3 1.5 - 6.5 K/cumm Imm gran abs 0.0 0.0 - 0.1 K/cumm [facility] Lymphocyte abs 2.7 0.8 - 3.3 K/cumm [facility] Monocyte abs 0.6 0.2 - 0.8 K/cumm [facility] Eosinophil abs 0.1 0.0 - 0.5 K/cumm [facility] Basophil abs 0.1 0.0 - 0.1 K/cumm [facility] Neutrophil pct 55.1 % [facility] Comment: Interpretive Data Percent cell count reference ranges are not reported, since discordance with absolute values may lead to misinterpretation of CBC data. Current Interpretive Data was last revised on 2018. Imm gran pct 0.4 % [facility] Comment: Interpretive Data Percent cell count reference ranges are not reported, since discordance with absolute values may lead to misinterpretation of CBC data. Current Interpretive Data was last revised on 2018. Lymphocyte pct 34.5 % [facility] Comment: Interpretive Data Percent cell count reference ranges are not reported, since discordance with absolute values may lead to misinterpretation of CBC data. Current Interpretive Data was last revised on 2018. Monocyte pct 7.5 % [facility] Comment: Interpretive Data Percent cell count reference ranges are not reported, since discordance with absolute values may lead to misinterpretation of CBC data. Current Interpretive Data was last revised on 2018. Eosinophil pct 1.7 % [facility] Comment: Interpretive Data Percent cell count reference ranges are not reported, since discordance with absolute values may lead to misinterpretation of CBC data. Current Interpretive Data was last revised on 2018. Basophil pct 0.8 % [facility] Comment: Interpretive Data Percent cell count reference ranges are not reported, since discordance with absolute values may lead to misinterpretation of CBC data. Current Interpretive Data was last revised on 2018. Blood 11/07/2024 9:21 AM COMPUTER TESTER 11/07/2024 9:24 AM COMPUTER TESTER us Tessie Lopez MD LAB BLOOD ORDERABLES Final R esult Performing Organization Address City/[facility] Co de Phone Number [facility] [address] [place] [employer] [place] [address] * (ABNORMAL) CBC with auto differential (11/07/2024 9:21 AM COMPUTER TESTER) [facility] WBC 7.9 3.8 - 9.9 K/cumm Hgb 14.9 11.9 - 15.5 g/dL [facility] Hct 46.3(H) 35.6 - 45.5 % [facility] Plt 313 150 - 400 K/cumm [facility] MPV 8.8(L) 9.1 - 12.3 fL [facility] RBC 5.01 3.90 - 5.20 M/cumm [facility] MCV 92.4 81.3 - 96.4 fL [facility] MCH 29.7 27.1 - 33.3 pg [facility] MCHC 32.2(L) 32.3 - 35.7 g/dL [facility] RDW CV 13.4 11.1 - 14.9 % [facility] RDW SD 45.7 35.7 - 48.1 fL [facility] NRBC abs 0.00 0.00 - 0.01 K/cumm [facility] Blood 11/07/2024 9:21 AM COMPUTER TESTER 11/07/2024 9:24 AM COMPUTER TESTER us Tessie Lopez MD LAB BLOOD ORDERABLES Final R esult Performing Organization Address City/[facility]/ZIP Co de Phone Number [facility] [address] [place] [address] * Protime-INR (11/07/2024 9:21 AM COMPUTER TESTER) [facility] PT 11.3 9.7 - 13.0 sec INR 1.05 0.90 - 1.20 [facility] Comment: Interpretive data Oral anticoagulant therapeutic ranges: Venous thromboembolism prophylaxis or treatment: 2.0-3.0 CARDIOLOGY Standard range: 2.0-3.0 High-intensity range: 2.5-3.5 Refer to indication-specific guidelines for appropriate target ranges for prosthetic heart valve replacement. Current interpretive data was last revised on 2019. Blood 11/07/2024 9:21 AM COMPUTER TESTER 11/07/2024 9:24 AM COMPUTER TESTER us Tessie Lopez MD LAB BLOOD ORDERABLES Final R esult [facility] [address] Department [place] [address] * Basic metabolic panel (11/07/2024 9:21 AM COMPUTER TESTER) Sodium 140 135 - 145 mmol/L Potassium, pl 4.4 3.3 - 4.9 mmol/L [facility] Chloride 104 97 - 110 mmol/L [facility] CO2 26 22 - 32 mmol/L [facility] Anion gap 10 2 - 15 mmol/L [facility] BUN 14 6 - 25 mg/dL [facility] Creatinine 0.67 0.60 - 1.10 mg/dL [facility] Glucose 120 70 - 199 mg/dL [facility] Comment: Interpretive Data Fasting glucose >/= 126 mg/dl is diagnostic for diabetes. Fasting is defined as no caloric intake for at least 8 hours. Fasting glucose between 100 mg/dl to 125 mg/dl is diagnostic of prediabetes. In a patient with classic symptoms of hyperglycemia or hyperglycemic crisis, a random glucose >/= 200 mg/dl is diagnostic for diabetes. In the absence of unequivocal hyperglycemia, results should be confirmed by repeat testing. The classification and Diagnosis of Diabetes Diabetes Care 2022; 46: S19-S40. Current interpretive data was last revised 2022. Calcium 9.3 8.5 - 10.3 mg/dL [facility] Blood 11/07/2024 9:21 AM COMPUTER TESTER 11/07/2024 9:24 AM COMPUTER TESTER us Tessie Lopez MD LAB BLOOD ORDERABLES Final R esult [facility] [address] Department [place] [address] from Last 3 Months Insurance [employer] Advance Directives For more information, please contact: [phone] * Full Code (Latest Code Status on File) Date Activated Date Inactivated Comments 11/15/2024 10:09 AM 11/15/2024 4:35 PM * Full Code Date Activated Date Inactivated Comments 03/11/2023 4:40 AM 03/12/2023 11:30 PM * Full Code Date Activated Date Inactivated Comments 03/12/2020 5:24 AM 03/13/2020 3:20 PM * Full Code Date Activated Date Inactivated Comments 02/26/2018 2:44 PM 02/26/2018 8:05 PM Care Teams Clinical Informatics Director Relationship Specialty Start Date End Date Javier Gutierrez MD [address] [place] [address] [address] PCP - General Family Medicine 07/19/24
--- OUTSIDE RECORDS SUMMARY | 2025-01-22 20:09 | XMS_ITS | Clinical Summary ---
Author Organization [facility] Address [address] [place] [address] Care Team Providers Care Cardiac Cath Lab Manager Name Role Phone Javier Gutierrez MD Primary Care Provider [phone] Allergies Active Allergy Reactions Criticality Noted Date [...] TABLET EVERY EVENING 135 tablet 3 07/04/2024 5 Active Eliquis 5 mg tablet TAKE 1 [...] mouth daily 30 tablet 11/15/2024 6 Active losartan (COZAAR) 25 mg tablet Take 1 tablet (25 mg total) by mouth daily 30 tablet 11 11/15/2024 6 Active Active Problems Problem Noted Date Diagnosed Date CAD in [place] artery 12/13/2024 Assessment & Plan (12/13/2024 12:38 PM RN IMMUNOLOGY): Doing well without angina. The patient is aware of the need for Primary prevention through aggressive CV risk factor modifications to include: blood pressure control, LDL control, daily exercise (per guidelines), and achieving and maintaining ideal body weight, etc. SOB (shortness of breath) 10/20/2024 Obesity (BMI 30-39.9) 07/19/2024 Assessment & Plan (12/13/2024 12:36 PM RN IMMUNOLOGY): Discussed meaningful weight loss thru lifestyle modifications, [...] 07/19/2024 Assessment & Plan (12/13/2024 12:36 PM RN IMMUNOLOGY): Per Dr Brambila. Assessment & Plan (07/19/2024 [...] 06/19/2023 Assessment & Plan (12/13/2024 12:43 PM RN IMMUNOLOGY): Improved on Lasix. Assessment & Plan (07/19/2024 [...] 03/12/2020 Assessment & Plan (12/13/2024 12:36 PM RN IMMUNOLOGY): The LDL is well controlled on current [...] 07/03/2017 Assessment & Plan (12/13/2024 4:43 PM RN IMMUNOLOGY): She has had recurrent AF Sx, and [...] of intracardiac thrombus. The patient has a ETG6XH1-IRDb score of 3. I have therefore recommended [...] with atrial fibrillation: a report of the [employer] College of Cardiology/English Heart Association Task Force on Practice Guidelines [...] recent scan is nonspecific and mild. Aspirin Encounters Date Type Department Care Team Description 01/03/[address] [facility] Medical [facility] Cardiology [address] [place] [phone] Judson Bahena MD monitor results 12/13/2024 1:00 PM RN IMMUNOLOGY Ancillary Procedure [facility] Cardiology [address] [place] [phone] PAF (paroxysmal atrial fibrillation) (HCC) 12/13/2024 11:30 AM RN IMMUNOLOGY Office Visit [facility] Cardiology [address] [place] [phone] Judson Bahena MD PAF (paroxysmal atrial fibrillation) (HCC) (Primary Dx); Status post radiofrequency ablation (RFA) operation for arrhythmia; CAD in [place] artery; Hyperlipidemia LDL goal <100; Obesity (BMI 30-39.9); Dependent edema 11/15/2024 8:00 AM RN IMMUNOLOGY - 11/15/2024 9:20 AM RN IMMUNOLOGY Surgery [address] [address] Tessie Lopez MD LEFT HEART CATHETERIZATION WITH CORONARY ANGIOGRAPHY AND WITH OR WITHOUT LEFT VENTRICULOGRAM [id number] 11/15/2024 7:07 AM RN IMMUNOLOGY - 11/15/2024 12:29 PM RN IMMUNOLOGY Hospital Encounter [address] [address] Tessie Lopez MD Discharge Disposition: Discharge to home or self care 11/11/2024 2:07 PM RN IMMUNOLOGY - 11/11/2024 7:46 PM RN IMMUNOLOGY Hospital Encounter [facility] [address] [place] [address] Tessie Lopez MD SOB (shortness of breath) Discharge Disposition: Discharge to home or self care 11/11/2024 Hospital Encounter [facility] [address] [place] [address] Tessie Lopez MD 11/08/[address] [facility] Medical [facility] Cardiology [address] [place] [address] Judson Bahena MD Letter for School/Work 11/07/2024 9:00 AM RN IMMUNOLOGY Lab [facility] Outpatient Lab [address] [place] [address] SOB (shortness of breath) from Last 3 Months Immunizations Immunization Administration Dates Next Due Influenza, Trivalent, Preservative Free, Intramu scular 09/14/2024 Surgical History Surgery Date Site/Laterality Comments OTHER SURGICAL HISTORY retina surgery multiple eye surgeries OTHER SURGICAL HISTORY Spinal fusion C4-6 KNEE SURGERY knee surgery CARDIAC CATHETERIZATION NASAL SEPTUM SURGERY CATARACT EXTRACTION Right eye Medical History Medical History Date Comments Atrial fibrillation (HCC) Hyperlipidemia Stroke (HCC) Arthritis Cataract Family History Medical History Relation Name Comments Coronary artery disease Brother Na Coronary artery disease, premature; JA 03/24/2017 -bypass Early Brother Na Heart attack Father Myocardial infa rction; Cause of : Myocardial infarction Heart attack Maternal Grandmother Na Arthritis Mother Multiple family members Other Mother's Brother AFIB; Heart failure Other 1 Family history of Congestive heart failure; Coronary artery disease Other 2 Family history of Coronary artery disease; Relation Name Status Comments Brother Na Father Maternal Grandmother Na Mother Multiple family members Mother's Brother Other 1 Other 2 Social History Tobacco Use Types Packs/Day Years [...] 03/11/2023 How often do you attend chur or yazidism services? More than 4 times per year 03/11/2023 Do you belong to any clubs o r organizations such as restorationist groups, unions, fraternal or athletic groups, or [...] on file Legal Sex Female 2:20 AM RN IMMUNOLOGY Gender Identity Not on file Sexual Orientation Not on file Obstetrics History Last Filed Vital Signs Vital Sign Reading Time Taken Comments Blood Pressure 128/70 12/13/2024 11:51 AM RN IMMUNOLOGY Pulse 75 12/13/2024 11:51 AM RN IMMUNOLOGY Temperature 36.7 C (98.1 F) 11/15/2024 7:00 AM RN IMMUNOLOGY Respiratory Rate 16 11/15/2024 12:15 PM RN IMMUNOLOGY Oxygen Saturation 98% 12/13/2024 11:51 AM RN IMMUNOLOGY Inhaled Oxygen Concentration - - Weight 121 kg (266 lb 12.8 oz) 12/13/2024 11:51 AM RN IMMUNOLOGY Height 171.5 cm (5' 7.5 ) 12/13/2024 11:51 AM CS T Body Mass Index 41.17 12/13/2024 11:51 AM RN IMMUNOLOGY Plan of Treatment Health Maintenance Due Date Last Done Comments Breast Cancer Screening-Mammogram 1959 Cervical Cancer Screening 1959 Colon Cancer Screening-Colonoscopy 1959 Depression Screening 1959 Hepatitis C Screening 1959 Osteoporosis Screening-Bone Density Scan 1959 DTaP/Tdap/Td Vaccine (1 - Tdap) 1970 Hepatitis B Screening 1977 Pneumococcal vaccine 65+ (1 of 2 - PCV) 1978 Zoster Vaccine (1 of 2) 2009 Covid-19 Vaccine ( - season) 07/10/202407/2021, 10/27/2020 Well Visit 65+ 2024 Fall Risk Assessment 11/15/2025 11/15/2024 Influenza Vaccine Completed 09/14/2024 Medical Devices Implanted Type Area Marine Design Engineer Device Identifier Shelf Expiration Date Model / Serial / Lot [employer] Vascade Mvp 6-12fr Venous Closure [id number] - [id number] - [id number] Implanted:Qty: 1 on 12/30/2023 by Shady Brambila MD at [facility] [employer] 09/29/2025 800-612C-1 0U / [id number] / [id number] [employer] Vascade Mvp 6-12fr Venous Closure [id number] - [id number] - [id number] Implanted:Qty: 1 on 12/30/2023 by Shady Brambila MD at [facility] [employer] 09/10/2025 800-612C-1 0U / [id number] / [id number] [employer] Vascade Mvp 6-12fr Venous Closure [id number] - [id number] - [id number] Implanted:Qty: 1 on 12/30/2023 by Shady Brambila MD at [facility] [employer] 09/07/2025 800-612C-1 0U / [id number] / [id number] [employer] Device Closure Vascade Od5 Fr Femoral Artery [id number] - [id number] - [id number] Implanted:Qty: 1 on 12/30/2023 by Shady Brambila MD at [facility] [employer] 09/22/2025 [id number] / [id number] / [id number] Procedures Procedure Name Priority Date/Time Associated Diagnosis Comments LEFT HEART CATHETERIZATION WITH CORONARY ANGIOGRAPHY AND WITH AND WITHOUT LEFT VENTRICULOGRAM Routine 11/15/2024 9:48 AM RN IMMUNOLOGY EGFR Routine 11/07/2024 9:21 AM RN IMMUNOLOGY SOB (shortness of breath) DIFFERENTIAL AUTO Routine 11/07/2024 9:2 1 AM RN IMMUNOLOGY SOB (shortness of breath) PROTIME-INR Routine 11/07/2024 9:21 AM RN IMMUNOLOGY SOB (shortness of breath) CBC WITH AUTO DIFFERENTIAL Routine 11/07/2024 9:21 AM RN IMMUNOLOGY SOB (shortness of breath) BASIC METABOLIC PANEL Routine 11/07/2024 9:21 AM RN IMMUNOLOGY SOB (shortness of breath) LEFT HEART CATHETERIZATION WITH CORONARY ANGIOGRAPHY AND WITH OR WITHOUT LEFT VENTRICULOGRAM [id number] SOB (shortness of breath) from Last 3 Months Results * LEFT HEART CATHETERIZATION WITH CORONARY ANGIOGRAPHY AND WITH AND WITHOUT LEFT VENTRICULOGRAM (11/15/2024 9:48 AM RN IMMUNOLOGY) Anatomical Region Laterality Modality X-Ray Angiograph y Narrative 11/15/2024 10:38 AM RN IMMUNOLOGY Images from the original result were not included. [facility] [address], [id number] [place], [place], [address] Left Heart Catheterization Procedure Report 64 year [...] and draped in sterile fashion. A 6 Algerian sheath was inserted in the Right Radial [...] inal Result * eGFR (11/07/2024 9:21 AM RN IMMUNOLOGY) [facility] eGFR >90 >=60 mL/min/1. 73 m2 Comment: [...] last reviewed 2021. Blood 11/07/2024 9:21 AM RN IMMUNOLOGY 11/07/2024 9:24 AM RN IMMUNOLOGY Tessie Lopez MD LAB BLOOD ORDERABLES Final R esult [facility] [address] Department [place] [address] * Differential, auto (11/07/2024 9:21 AM RN IMMUNOLOGY) Pathologist [facility] Neutrophil abs 4.3 1.5 - 6.5 K/cumm Imm gran abs 0.0 0.0 - 0.1 K/cumm [facility] Lymphocyte abs 2.7 0.8 - 3.3 K/cumm [facility] Monocyte abs 0.6 0.2 - 0.8 K/cumm [facility] Eosinophil abs 0.1 0.0 - 0.5 K/cumm [facility] Basophil abs 0.1 0.0 - 0.1 K/cumm [facility] Neutrophil pct 55.1 % [facility] Comment: Interpretive Data Percent cell count reference ranges are not reported, since discordance with absolute values may lead to misinterpretation of CBC data. Current Interpretive Data was last revised on 2018. Imm gran pct 0.4 % [facility] Comment: Interpretive Data Percent cell count reference ranges are not reported, since discordance with absolute values may lead to misinterpretation of CBC data. Current Interpretive Data was last revised on 2018. Lymphocyte pct 34.5 % [facility] Comment: Interpretive Data Percent cell count reference ranges are not reported, since discordance with absolute values may lead to misinterpretation of CBC data. Current Interpretive Data was last revised on 2018. Monocyte pct 7.5 % [facility] Comment: Interpretive Data Percent cell count reference ranges are not reported, since discordance with absolute values may lead to misinterpretation of CBC data. Current Interpretive Data was last revised on 2018. Eosinophil pct 1.7 % [facility] Comment: Interpretive Data Percent cell count reference ranges are not reported, since discordance with absolute values may lead to misinterpretation of CBC data. Current Interpretive Data was last revised on 2018. Basophil pct 0.8 % [facility] Comment: Interpretive Data Percent cell count reference ranges are not reported, since discordance with absolute values may lead to misinterpretation of CBC data. Current Interpretive Data was last revised on 2018. Blood 11/07/2024 9:21 AM RN IMMUNOLOGY 11/07/2024 9:24 AM RN IMMUNOLOGY us Tessie Lopez MD LAB BLOOD ORDERABLES Final R esult [facility] [address] Department [place] [address] * (ABNORMAL) CBC with auto differential (11/07/2024 9:21 AM RN IMMUNOLOGY) WBC 7.9 3.8 - 9.9 K/cumm Hgb 14.9 11.9 - 15.5 g/dL [facility] Hct 46.3(H) 35.6 - 45.5 % [facility] Plt 313 150 - 400 K/cumm [facility] MPV 8.8(L) 9.1 - 12.3 fL [facility] RBC 5.01 3.90 - 5.20 M/cumm [facility] MCV 92.4 81.3 - 96.4 fL [facility] MCH 29.7 27.1 - 33.3 pg [facility] MCHC 32.2(L) 32.3 - 35.7 g/dL [facility] RDW CV 13.4 11.1 - 14.9 % [facility] RDW SD 45.7 35.7 - 48.1 fL [facility] NRBC abs 0.00 0.00 - 0.01 K/cumm [facility] Blood 11/07/2024 9:21 AM RN IMMUNOLOGY 11/07/2024 9:24 AM RN IMMUNOLOGY us Tessie Lopez MD LAB BLOOD ORDERABLES Final R esult Performing Organization Address City/[facility] Co de Phone Number [facility] [address] [place] [address] * Protime-INR (11/07/2024 9:21 AM RN IMMUNOLOGY) PT 11.3 9.7 - 13.0 sec INR 1.05 0.90 - 1.20 [facility] Comment: Interpretive data Oral anticoagulant therapeutic ranges: Venous thromboembolism prophylaxis or treatment: 2.0-3.0 CARDIOLOGY Standard range: 2.0-3.0 High-intensity range: 2.5-3.5 Refer to indication-specific guidelines for appropriate target ranges for prosthetic heart valve replacement. Current interpretive data was last revised on 2019. Blood 11/07/2024 9:21 AM RN IMMUNOLOGY 11/07/2024 9:24 AM RN IMMUNOLOGY us Tessie Lopez MD LAB BLOOD ORDERABLES Final R esult Performing Organization Address City/[facility]/ZIP Co de Phone Number [facility] [address] [place] [address] * Basic metabolic panel (11/07/2024 9:21 AM RN IMMUNOLOGY) Sodium 140 135 - 145 mmol/L Potassium, pl 4.4 3.3 - 4.9 mmol/L [facility] Chloride 104 97 - 110 mmol/L [facility] CO2 26 22 - 32 mmol/L [facility] Anion gap 10 2 - 15 mmol/L [facility] BUN 14 6 - 25 mg/dL [facility] Creatinine 0.67 0.60 - 1.10 mg/dL [facility] Glucose 120 70 - 199 mg/dL [facility] Comment: Interpretive Data Fasting glucose >/= 126 [...] classification and Diagnosis of Diabetes Diabetes Care 2021; 46: S19-S40. Current interpretive data was last revised 2022. Calcium 9.3 8.5 - 10.3 mg/dL [facility] Blood 11/07/2024 9:21 AM RN IMMUNOLOGY 11/07/2024 9:24 AM RN IMMUNOLOGY us Tessie Lopez MD LAB BLOOD ORDERABLES Final R esult [facility] [address] Department [place] [address] from Last 3 Months Insurance [employer] Advance Directives For more information, please contact: [phone] * Full Code (Latest Code Status on File) Date Activated Date Inactivated Comments 11/15/2024 10:09 AM 11/15/2024 4:35 PM * Full Code Date Activated Date Inactivated Comments 03/11/2023 4:40 AM 03/12/2023 11:30 PM * Full Code Date Activated Date Inactivated Comments 03/12/2020 5:24 AM 03/13/2020 3:20 PM * Full Code Date Activated Date Inactivated Comments 02/26/2018 2:44 PM 02/26/2018 8:05 PM Care Teams Cardiac Cath Lab Manager Relationship Specialty Start Date End Date Javier Gutierrez MD [address] [place] [address] [place] [address] PCP - General Family Medicine 07/19/24
--- OUTSIDE RECORDS SUMMARY | 2025-01-22 22:56 | XMS_ITS | Continuity of Care Document ---
Author Organization [facility] Address [address] [place] [address] Phone Care Team Providers Care Artist Consultant Name Role Phone Jamil SALAMANCA, Abdoul Unavailable [...] Date Provider Providers Copied on Encounter [facility], [address], [id number], [place] tel:[phone] [facility] No Information Nov 3 Jamil Schreiber. [address], [id number] , [place]. tel:[phone] [facility], [address], [id number], [place] tel:[phone] [facility] right knee scope (chief complaint) Other Chronic PainJOINT PAIN-L/LEGART HROPATHY NOS-L/LEGCHON DROMALACIA PATELLAE 3 Jamil Schreiber. [address], [id number] , [place]. tel: [phone] [employer] [facility], [address], [id number], [place] tel:[phone] [employer] [facility] post op right knee socpe PMM (chief complaint) TEAR MED MENISC KNEE-CURARTHR OPATHY NOS-L/LEG Sep-3 0 3 Jamil Schreiber. [address], [id number] , [place]. tel: [phone] [employer] [facility], [address], [id number], [place] tel:[phone] [facility] post op right knee scope (chief complaint) TEAR MED MENISC KNEE-CUR Sep-0 3 Jamil Schreiber. [address], [id number] , [place]. tel: [phone] [facility], [address] [place] [address], [id number], [place] tel:[phone] [facility] TEAR MED MENISC KNEE-CURJOINT PAIN-L/LEG Sep-0 3 Jamil Schreiber. [address], [id number] , [place]. tel: [phone] [facility], [address] [place] [address], [id number], [place] tel:[phone] [facility] post op right knee scope (chief complaint) TEAR MED MENISC KNEE-CUR 3 Jamil Schreiber. [address] [facility], [address], [id number] , [place]. tel: [phone] [facility], [address], [id number], [place] [phone] [facility] [place] TEAR MED MENISC KNEE-CURCHOND ROMALACIA PATELLAE 3 Jamil Schreiber. [address] [place] [address], [place] [address], [place], [place], [id number] , [place]. tel: [phone] Office/outpat ient visit,[facility], [address], [id number], tel:[phone] [facility] right knee pain (chief complaint) PAIN IN LIMBDERANG MED MENISCUS NEC 3 Jamil Schreiber. [address] [place] [address], [place] [address], [place], [place], [id number] , [place]. tel: [phone] Family History Family Member Type Diagnosis Age At Onset No Information Immunizations Vaccine Date Status Comments Flu (split) (3 yrs or older) administered Source: New Immunization Record Payers Payer name Insurance type Covered libertarian ID Authoriza tion(s) [facility] CI [id number] [place] [place] [employer] Shiel d [facility] [id number] Social History Type Description Quantity Date Captured [...]
--- OUTSIDE RECORDS SUMMARY | 2025-01-22 22:57 | XMS_ITS | Encounter Summary ---
Author Organization [facility] Healthcare Address [address] [place] [address] Care Team Providers Care First Crusher Name Role Phone Javier Gutierrez MD Primary Care Provider [phone] Reason for Visit * Reason Onset Date Comments monitor results 01/03/2025 Encounter Details Date Type Department Care Team (Late st Contact Info) Description 01/03/2025 Telephone [facility] Medical Group Cardiology [address] [place] [address] Judson Bahena MD [facility] [address] [place] [address] monitor results Social History Tobacco [...] often do you attend chur ch or orthodoxy services? 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 ITY CONTROL ASSISTANT documented in this encounter Plan of Treatment Not on file documented as of this encounter Visit Diagnoses Not on filedocumented in this encounter Care Teams First Crusher Relationship Specialty Start Date End Date Javier Gutierrez MD [facility] [address] [address] PCP - General Family Medicine 07/19/24 documented as of this encounter
--- OUTSIDE RECORDS SUMMARY | 2025-01-22 22:57 | XMS_ITS | Encounter Summary ---
Author Organization [facility] Address 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
--- OUTSIDE RECORDS SUMMARY | 2025-01-22 22:57 | XMS_ITS | Clinical Summary ---
Author Organization [facility] Address [address] [place] [address] Phone Care Team Providers Care Wood Room Hand Name Role Phone Javier Gutierrez MD Primary Care Provider [phone] Social History Tobacco Use Types Packs/Day Years Used Date Smoking Tobacco: Never Assessed Comments Unknown Sex and Gender Information Value Date Recorded Sex Assigned at Not on file Legal Sex Female 2:56 AM LEGAL SPECIALIST Gender Identity Not on file Sexual Orientation [...] - 1-dose 75+ series) 2034 Care Teams Wood Room Hand Relationship Specialty Start Date End Date Javier Gutierrez MD [address] [place] [phone] PCP - General 10/07/04
--- OUTSIDE RECORDS SUMMARY | 2025-01-22 22:57 | XMS_ITS | Continuity of Care Document ---
Author Organization [facility] Address [address] [place] [address] [place] [address] Phone Care Team Providers Care Continuity Tester Name Role Phone Garrison Chung Unavailable Unavailable [...] Diagnoses Date Provider Providers Copied on Encounter [facility], [address] [place] [address] [address], [place], [place], [id number], [place] [phone] [facility] No Information [address] Sheldon Ji. [address] [facility] , [address], [place], [address], [place]. tel:[phone] [facility], [address] [place] [address] [address], [place], [place], [id number], [place] tel:[phone] [facility] No Information [address] Ji. [address] , [address], [place], [address], [place]. tel:[phone] Office/outpat ient Visit, Est [facility], [address], [place], [place], [id number], [place] tel:[phone] [facility] No Information [address] Doisy Edward. [address] , [address], [place], [facility], [place]. tel:[phone] Office/outpat ient Visit, Est [facility], [address] [place] [address] [address], [place], [place], [id number], [place] tel:[phone] [facility] No Information [address] Glover OD Max. [address] , [address], [place], [facility], [place]. tel:[phone] [facility], [address] [place] [address] [address], [place], [place], [id number], [place] tel:[phone] [facility] No Information [address]. [address] , [address], [place], [facility], [place]. tel:[phone] [facility], [address] [place] [address] [address], [place], [place], [id number], [place] tel:[phone] [facility] No Information 8 Doisy Edward. [address] , [address], [place], [facility], [place]. tel:[phone] [facility], [address] [place] [address] [address], [place], [place], [id number], [place] tel:[phone] [facility] No Information [address]. [address] , [address], [place], [facility], [place]. tel:[phone] [facility], [address] [place] [address] [address], [place], [place], [id number], [place] tel:[phone] [facility] No Information Dec-1 2-200 7 [address]isy Edward. [address] [facility] [address] , [address], [place] [facility], . tel:[phone] [facility], [address] [facility] [address], [place], [place], [id number], [place] tel:[phone] [facility] No Information Dec-1 1-200 7 Doisy Edward. [address] [facility] , [address], [place] [facility], [place]. tel:[phone] [facility], [address], [place], [place], [id number], tel:[phone] [facility] No Information Dec-0 3-200 7 [address]isy Edward. [address] [facility] , [address], [place], [facility], [place]. tel:[phone] Family History Family Member Type Diagnosis Age [...]
--- OUTSIDE RECORDS SUMMARY | 2025-01-22 22:57 | XMS_ITS | Encounter Summary ---
Author Organization [facility] Healthcare Address [address] [place] [address] Care Team Providers Care Concrete Bucket Loader Name Role Phone Javier Gutierrez MD Primary Care Provider [phone] Encounter Details Date Type Department Care Team (Late st Contact Info) Description 11/11/2024 Hospital Encounter [facility] [address] [place] [address] Tessie Lopez MD [address] [facility] [address] [place] [address] Social History Tobacco Use Types [...] often do you attend chur ch or moravian services? 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
--- OUTSIDE RECORDS SUMMARY | 2025-01-22 22:57 | XMS_ITS | Referral Summary ---
Author Organization [facility] Address [address] [place] [address] Care Team Providers Care Crystal Grower Name Role Phone Javier Gutierrez MD Primary Care Provider [phone] Encounters Date Type Department Care Team Description 01/03/2025 Telephone [facility] Cardiology [address] [place] [phone] Judson Bahena MD monitor results 12/13/2024 1:00 PM LINE PATROLMAN Ancillary Procedure [facility]iology [address] [place] [phone] PAF (paroxysmal atrial fibrillation) (HCC) 12/13/2024 11:30 AM LINE PATROLMAN Office Visit [facility] Cardiology [address] [place] [phone] Judson Bahena MD PAF (paroxysmal atrial fibrillation) (HCC) (Primary Dx); Status post radiofrequency ablation (RFA) operation for arrhythmia; CAD in [place] artery; Hyperlipidemia LDL goal <100; Obesity (BMI 30-39.9); Dependent edema 11/15/2024 8:00 AM LINE PATROLMAN - 11/15/2024 9:20 AM LINE PATROLMAN Surgery [facility] [place] [address] Tessie Lopez MD LEFT HEART CATHETERIZATION WITH CORONARY ANGIOGRAPHY AND WITH OR WITHOUT LEFT VENTRICULOGRAM [id number] 11/15/2024 7:07 AM LINE PATROLMAN - 11/15/2024 12:29 PM LINE PATROLMAN Hospital Encounter [facility] [address] [place] [phone] Tessie Lopez MD Discharge Disposition: Discharge to home or self care 11/11/2024 Hospital Encounter [facility] Heart [address] [phone] Tessie Lopez MD 11/11/2024 2:07 PM LINE PATROLMAN - 11/11/2024 7:46 PM LINE PATROLMAN Hospital Encounter [facility] [address] [place] [phone] Tessie Lopez MD SOB (shortness of breath) Discharge Disposition: Discharge to home or self care 11/08/2024 Telephone [facility] Cardiology [address] [facility] [address] [place] [phone] Judson Bahena MD Letter for School/Work 11/07/2024 9:00 AM LINE PATROLMAN Lab [facility] Outpatient Lab [address] [place] [phone] SOB (shortness of breath) from Last 3 [...] Problem Noted Date Diagnosed Date CAD in [place] artery 12/13/2024 Assessment & Plan (12/13/2024 12:38 PM LINE PATROLMAN): Doing well without angina. The patient is aware of the need for Primary prevention through aggressive CV risk factor modifications to include: blood pressure control, LDL control, daily exercise (per guidelines), and achieving and maintaining ideal body weight, etc. SOB (shortness of breath) 10/20/2024 Obesity (BMI 30-39.9) 07/19/2024 Assessment & Plan (12/13/2024 12:36 PM LINE PATROLMAN): Discussed meaningful weight loss thru lifestyle modifications, [...] 07/19/2024 Assessment & Plan (12/13/2024 12:36 PM LINE PATROLMAN): Per Dr Brambila. Assessment & Plan (07/19/2024 [...] 06/19/2023 Assessment & Plan (12/13/2024 12:43 PM LINE PATROLMAN): Improved on Lasix. Assessment & Plan (07/19/2024 [...] 03/12/2020 Assessment & Plan (12/13/2024 12:36 PM LINE PATROLMAN): The LDL is well controlled on current [...] 07/03/2017 Assessment & Plan (12/13/2024 4:43 PM LINE PATROLMAN): She has had recurrent AF Sx, and [...] of intracardiac thrombus. The patient has a [id number] score of 3. I have therefore recommended [...] with atrial fibrillation: a report of the [place] [employer]/[place] [employer] Task Force on Practice Guidelines [...] week 03/11/2023 How often do you attend [facility] or sikh services? More than 4 times per year 03/11/2023 Do you belong to any clubs o r organizations such as anabaptism groups, unions, fraternal or athletic groups, or [...] on file Legal Sex Female 2:20 AM LINE PATROLMAN Gender Identity Not on file Sexual Orientation Not on file Last Filed Vital Signs Vital Sign Reading Time Taken Comments Blood Pressure 128/70 12/13/2024 11:51 AM LINE PATROLMAN Pulse 75 12/13/2024 11:51 AM LINE PATROLMAN Temperature 36.7 C (98.1 F) 11/15/2024 7:00 AM LINE PATROLMAN Respiratory Rate 16 11/15/2024 12:15 PM LINE PATROLMAN Oxygen Saturation 98% 12/13/2024 11:51 AM LINE PATROLMAN Inhaled Oxygen Concentration - - Weight 121 kg (266 lb 12.8 oz) 12/13/2024 11:51 AM LINE PATROLMAN Height 171.5 cm (5' 7.5 ) 12/13/2024 11:51 AM CS T Body Mass Index 41.17 12/13/2024 11:51 AM LINE PATROLMAN Plan of Treatment Not on file Medical Devices Implanted Type Area Historical Records Administrator Device Identifier Shelf Expiration Date Model / Serial / Lot [employer] Vascade Mvp 6-12fr Venous Closure [id number] - [id number] - [id number] Implanted:Qty: 1 on 12/30/2023 by Shady Brambila MD at [facility] [employer] 09/29/2025 800-612C-1 0U / [id number] / [id number] [employer] Vascade Mvp 6-12fr Venous Closure [id number] - [id number] - [id number] Implanted:Qty: 1 on 12/30/2023 by Shady Brambila MD at [facility] Collagen [employer] 09/10/2025 800-612C-1 0U / [id number] / [id number] [employer] Vascade Mvp 6-12fr Venous Closure [id number] - [id number] - [id number] Implanted:Qty: 1 on 12/30/2023 by Shady Brambila MD at [facility] Collagen [employer] 09/07/2025 800-612C-1 0U / [id number] / [id number] [employer] Device Closure Vascade Od5 Fr Femoral Artery [id number] - [id number] - [id number] Implanted:Qty: 1 on 12/30/2023 by Shady Brambila MD at [facility] Collagen [employer] 09/22/2025 [id number] [id number] / [id number] / [id number] Procedures Procedure Name Priority Date/Time Associated Diagnosis Comments LEFT HEART CATHETERIZATION WITH CORONARY ANGIOGRAPHY AND WITH AND WITHOUT LEFT VENTRICULOGRAM Routine 11/15/2024 9:48 AM LINE PATROLMAN EGFR Routine 11/07/2024 9:21 AM LINE PATROLMAN SOB (shortness of breath) DIFFERENTIAL AUTO Routine 11/07/2024 9:2 1 AM LINE PATROLMAN SOB (shortness of breath) PROTIME-INR Routine 11/07/2024 9:21 AM LINE PATROLMAN SOB (shortness of breath) CBC WITH AUTO DIFFERENTIAL Routine 11/07/2024 9:21 AM LINE PATROLMAN SOB (shortness of breath) BASIC METABOLIC PANEL Routine 11/07/2024 9:21 AM LINE PATROLMAN SOB (shortness of breath) LEFT HEART CATHETERIZATION WITH CORONARY ANGIOGRAPHY AND WITH OR WITHOUT LEFT VENTRICULOGRAM [address] SOB (shortness of breath) from Last 3 Months Results * LEFT HEART CATHETERIZATION WITH CORONARY ANGIOGRAPHY AND WITH AND WITHOUT LEFT VENTRICULOGRAM (11/15/2024 9:48 AM LINE PATROLMAN) Anatomical Region Laterality Modality X-Ray Angiograph y Narrative 11/15/2024 10:38 AM LINE PATROLMAN Images from the original result were not included. [facility] Cardiology [address] [place] [address], [id number], [address] Left Heart Catheterization Procedure Report 64 year [...] and draped in sterile fashion. A 6 Chinese sheath was inserted in the Right Radial [...] inal Result * eGFR (11/07/2024 9:21 AM LINE PATROLMAN) eGFR >90 >=60 mL/min/1. 73 m2 Comment: [...] last reviewed 2021. Blood 11/07/2024 9:21 AM LINE PATROLMAN 11/07/2024 9:24 AM LINE PATROLMAN us Tessie Lopez MD LAB BLOOD ORDERABLES Final R esult [facility] [address] Department [place] [address] * Differential, auto (11/07/2024 9:21 AM LINE PATROLMAN) Neutrophil abs 4.3 1.5 - 6.5 K/cumm Imm gran abs 0.0 0.0 - 0.1 K/cumm [facility] Lymphocyte abs 2.7 0.8 - 3.3 K/cumm [facility] Monocyte abs 0.6 0.2 - 0.8 K/cumm [facility] Eosinophil abs 0.1 0.0 - 0.5 K/cumm [facility] Basophil abs 0.1 0.0 - 0.1 K/cumm [facility] Neutrophil pct 55.1 % [facility] Comment: Interpretive Data Percent cell count reference ranges are not reported, since discordance with absolute values may lead to misinterpretation of CBC data. Current Interpretive Data was last revised on 2018. Imm gran pct 0.4 % [facility] Comment: Interpretive Data Percent cell count reference ranges are not reported, since discordance with absolute values may lead to misinterpretation of CBC data. Current Interpretive Data was last revised on 2018. Lymphocyte pct 34.5 % [facility] Comment: Interpretive Data Percent cell count reference ranges are not reported, since discordance with absolute values may lead to misinterpretation of CBC data. Current Interpretive Data was last revised on 2018. Monocyte pct 7.5 % [facility] Comment: Interpretive Data Percent cell count reference ranges are not reported, since discordance with absolute values may lead to misinterpretation of CBC data. Current Interpretive Data was last revised on 2018. Eosinophil pct 1.7 % [facility] Comment: Interpretive Data Percent cell count reference ranges are not reported, since discordance with absolute values may lead to misinterpretation of CBC data. Current Interpretive Data was last revised on 2018. Basophil pct 0.8 % [facility] Comment: Interpretive Data Percent cell count reference ranges are not reported, since discordance with absolute values may lead to misinterpretation of CBC data. Current Interpretive Data was last revised on 2018. Blood 11/07/2024 9:21 AM LINE PATROLMAN 11/07/2024 9:24 AM LINE PATROLMAN us Tessie Lopez MD LAB BLOOD ORDERABLES Final R esult Performing Organization Address City/[facility] [address]/[facility] Co de Phone Number [facility] [address] [place] [address] * (ABNORMAL) CBC with auto differential (11/07/2024 9:21 AM LINE PATROLMAN) [facility] WBC 7.9 3.8 - 9.9 K/cumm Hgb 14.9 11.9 - 15.5 g/dL [facility] Hct 46.3(H) 35.6 - 45.5 % [facility] Plt 313 150 - 400 K/cumm [facility] MPV 8.8(L) 9.1 - 12.3 fL [facility] RBC 5.01 3.90 - 5.20 M/cumm [facility] MCV 92.4 81.3 - 96.4 fL [facility] MCH 29.7 27.1 - 33.3 pg [facility] MCHC 32.2(L) 32.3 - 35.7 g/dL [facility] RDW CV 13.4 11.1 - 14.9 % [facility] RDW SD 45.7 35.7 - 48.1 fL [facility] NRBC abs 0.00 0.00 - 0.01 K/cumm [facility] Blood 11/07/2024 9:21 AM LINE PATROLMAN 11/07/2024 9:24 AM LINE PATROLMAN us Tessie Lopez MD LAB BLOOD ORDERABLES Final R esult Performing Organization Address City/[facility] [address]/ZIP Co de Phone Number [facility] [address] Department [place] [address] * Protime-INR (11/07/2024 9:21 AM LINE PATROLMAN) [facility] PT 11.3 9.7 - 13.0 sec INR 1.05 0.90 - 1.20 [facility] Comment: Interpretive data Oral anticoagulant therapeutic ranges: Venous thromboembolism prophylaxis or treatment: 2.0-3.0 CARDIOLOGY Standard range: 2.0-3.0 High-intensity range: 2.5-3.5 Refer to indication-specific guidelines for appropriate target ranges for prosthetic heart valve replacement. Current interpretive data was last revised on 2019. Blood 11/07/2024 9:21 AM LINE PATROLMAN 11/07/2024 9:24 AM LINE PATROLMAN us Tessie Lopez MD LAB BLOOD ORDERABLES Final R esult [facility] [address] Department [place] [address] * Basic metabolic panel (11/07/2024 9:21 AM LINE PATROLMAN) Sodium 140 135 - 145 mmol/L Potassium, pl 4.4 3.3 - 4.9 mmol/L [facility] Chloride 104 97 - 110 mmol/L [facility] CO2 26 22 - 32 mmol/L [facility] Anion gap 10 2 - 15 mmol/L [facility] BUN 14 6 - 25 mg/dL [facility] Creatinine 0.67 0.60 - 1.10 mg/dL [facility] Glucose 120 70 - 199 mg/dL [facility] Comment: Interpretive Data Fasting glucose [...] 2022. Calcium 9.3 8.5 - 10.3 mg/dL [facility] Blood 11/07/2024 9:21 AM LINE PATROLMAN 11/07/2024 9:24 AM LINE PATROLMAN us Tessie Lopez MD LAB BLOOD ORDERABLES Final R esult [facility] [address] Department [place] [address] from Last [address] [facility] EMPL[employer]YEES Advance Directives For more information, please contact: [phone] * Full Code (Latest Code Status on File) Date Activated Date Inactivated Comments 11/15/2024 10:09 AM 11/15/2024 4:35 PM * Full Code Date Activated Date Inactivated Comments 03/11/2023 4:40 AM 03/12/2023 11:30 PM * Full Code Date Activated Date Inactivated Comments 03/12/2020 5:24 AM 03/13/2020 3:20 PM * Full Code Date Activated Date Inactivated Comments 02/26/2018 2:44 PM 02/26/2018 8:05 PM Care Teams Crystal Grower Relationship Specialty Start Date End Date Javier Gutierrez MD [address] [place] [address] [address] PCP - General Family Medicine 07/19/24
--- OUTSIDE RECORDS SUMMARY | 2025-01-22 22:57 | XMS_ITS | Clinical Summary ---
Author Organization [facility] Address [address] [place] [address] Care Team Providers Care Consumer Experience Consultant Name Role Phone Javier Gutierrez MD Primary Care Provider [phone] Allergies Active Allergy Reactions Criticality Noted Date [...] Problem Noted Date Diagnosed Date CAD in lumbee artery 12/13/2024 Assessment & Plan (12/13/2024 12:38 PM MANUFACTURING PROCESS ENGINEER): Doing well without angina. The patient is aware of the need for Primary prevention through aggressive CV risk factor modifications to include: blood pressure control, LDL control, daily exercise (per guidelines), and achieving and maintaining ideal body weight, etc. SOB (shortness of breath) 10/20/2024 Obesity (BMI 30-39.9) 07/19/2024 Assessment & Plan (12/13/2024 12:36 PM MANUFACTURING PROCESS ENGINEER): Discussed meaningful weight loss thru lifestyle modifications, [...] 07/19/2024 Assessment & Plan (12/13/2024 12:36 PM MANUFACTURING PROCESS ENGINEER): Per Dr Brambila. Assessment & Plan (07/19/2024 [...] 06/19/2023 Assessment & Plan (12/13/2024 12:43 PM MANUFACTURING PROCESS ENGINEER): Improved on Lasix. Assessment & Plan (07/19/2024 [...] 03/12/2020 Assessment & Plan (12/13/2024 12:36 PM MANUFACTURING PROCESS ENGINEER): The LDL is well controlled on current [...] 07/03/2017 Assessment & Plan (12/13/2024 4:43 PM MANUFACTURING PROCESS ENGINEER): She has had recurrent AF Sx, and [...] of intracardiac thrombus. The patient has a [id number] score of 3. I have therefore recommended continued anticoagulation for thromboprophylaxis. My office will make the appropriate arrangements. From: November, Vincenzo LS, Isis JS, Naveed H, Librado RUMA, Isaac JE, Iarj ALYSSA, Billy PT, Yael SALAMANCA, ME, Jase KT, Shiela RL, Angel WG, Po PJ, Becca CM, Abril CW. 2014 AHA/ACC/HRS guideline for the management of patients with atrial fibrillation: a report of the [place] [employer]/[place] [employer] Association Task Force on Practice Guidelines [...] Type Department Care Team Description 01/03/2025 Telephone [facility] Cardiology [address] [place] [phone] Judson Bahena MD monitor results 12/13/2024 1:00 PM MANUFACTURING PROCESS ENGINEER Ancillary Procedure [facility] Cardiology [address] [place] [phone] PAF (paroxysmal atrial fibrillation) (HCC) 12/13/2024 11:30 AM MANUFACTURING PROCESS ENGINEER Office Visit [facility] Cardiology [address] [place] [phone] Judson Bahena MD PAF (paroxysmal atrial fibrillation) (HCC) (Primary Dx); Status post radiofrequency ablation (RFA) operation for arrhythmia; CAD in lumbee artery; Hyperlipidemia LDL goal <100; Obesity (BMI 30-39.9); Dependent edema 11/15/2024 8:00 AM MANUFACTURING PROCESS ENGINEER - 11/15/2024 9:20 AM MANUFACTURING PROCESS ENGINEER Surgery [address] [phone] Tessie Lopez MD LEFT HEART CATHETERIZATION WITH CORONARY ANGIOGRAPHY AND WITH OR WITHOUT LEFT VENTRICULOGRAM [id number] 11/15/2024 7:07 AM MANUFACTURING PROCESS ENGINEER - 11/15/2024 12:29 PM MANUFACTURING PROCESS ENGINEER Hospital Encounter [address] [phone] Tessie Lopez MD Discharge Disposition: Discharge to home or self care 11/11/2024 2:07 PM MANUFACTURING PROCESS ENGINEER - 11/11/2024 7:46 PM MANUFACTURING PROCESS ENGINEER Hospital Encounter [facility] [address] [place] [address] Tessie Lopez MD SOB (shortness of breath) Discharge Disposition: Discharge to home or self care 11/11/2024 Hospital Encounter [facility] [address] [place] [address] Tessie Lopez MD 11/08/2024 Telephone [facility] Cardiology [address] [place] [address] Judson Bahena MD Letter for School/Work 11/07/2024 9:00 AM MANUFACTURING PROCESS ENGINEER Lab [facility] Outpatient Lab [address] [place] [address] SOB (shortness of breath) from [...] How often do you attend chur or judaism services? More than 4 times per year 03/11/2023 Do you belong to any clubs o r organizations such as zoroastrianism groups, unions, fraternal or athletic groups, or [...] on file Legal Sex Female 2:20 AM MANUFACTURING PROCESS ENGINEER Gender Identity Not on file Sexual Orientation Not on file Obstetrics History Last Filed Vital Signs Vital Sign Reading Time Taken Comments Blood Pressure 128/70 12/13/2024 11:51 AM MANUFACTURING PROCESS ENGINEER Pulse 75 12/13/2024 11:51 AM MANUFACTURING PROCESS ENGINEER Temperature 36.7 C (98.1 F) 11/15/2024 7:00 AM MANUFACTURING PROCESS ENGINEER Respiratory Rate 16 11/15/2024 12:15 PM MANUFACTURING PROCESS ENGINEER Oxygen Saturation 98% 12/13/2024 11:51 AM MANUFACTURING PROCESS ENGINEER Inhaled Oxygen Concentration - - Weight 121 kg (266 lb 12.8 oz) 12/13/2024 11:51 AM MANUFACTURING PROCESS ENGINEER Height 171.5 cm (5' 7.5 ) 12/13/2024 11:51 AM CS T Body Mass Index 41.17 12/13/2024 11:51 AM MANUFACTURING PROCESS ENGINEER Plan of Treatment Health Maintenance Due Date [...] Completed 09/14/2024 Medical Devices Implanted Type Area Supervisor Offset Plate Preparation Device Identifier Shelf Expiration Date Model / Serial / Lot [employer] Vascade Mvp 6-12fr Venous Closure [id number] - [id number] - [id number] Implanted:Qty: 1 on 12/30/2023 by Shady Brambila MD at [facility] [employer] 09/29/2025 800-612C-1 0U / [id number] / [id number] [employer] Vascade Mvp 6-12fr Venous Closure [id number] - [id number] - [id number] Implanted:Qty: 1 on 12/30/2023 by Shady Brambila MD at [facility] [employer] 09/10/2025 800-612C-1 0U / [id number] / [id number] [employer] Vascade Mvp 6-12fr Venous Closure [id number] - [id number] - [id number] Implanted:Qty: 1 on 12/30/2023 by Shady Brambila MD at [facility] [employer] 09/07/2025 800-612C-1 0U / [id number] / [id number] [employer] Device Closure Vascade Od5 Fr Femoral Artery [id number] - [id number] - [id number] Implanted:Qty: 1 on 12/30/2023 by Shady Brambila MD at [facility] [employer] 09/22/2025 [id number] [id number] / [id number] / [id number] Procedures Procedure Name Priority Date/Time Associated Diagnosis Comments LEFT HEART CATHETERIZATION WITH CORONARY ANGIOGRAPHY AND WITH AND WITHOUT LEFT VENTRICULOGRAM Routine 11/15/2024 9:48 AM MANUFACTURING PROCESS ENGINEER EGFR Routine 11/07/2024 9:21 AM MANUFACTURING PROCESS ENGINEER SOB (shortness of breath) DIFFERENTIAL AUTO Routine 11/07/2024 9:2 1 AM MANUFACTURING PROCESS ENGINEER SOB (shortness of breath) PROTIME-INR Routine 11/07/2024 9:21 AM MANUFACTURING PROCESS ENGINEER SOB (shortness of breath) CBC WITH AUTO DIFFERENTIAL Routine 11/07/2024 9:21 AM MANUFACTURING PROCESS ENGINEER SOB (shortness of breath) BASIC METABOLIC PANEL Routine 11/07/2024 9:21 AM MANUFACTURING PROCESS ENGINEER SOB (shortness of breath) LEFT HEART CATHETERIZATION WITH CORONARY ANGIOGRAPHY AND WITH OR WITHOUT LEFT VENTRICULOGRAM [id number] SOB (shortness of breath) from Last 3 Months Results * LEFT HEART CATHETERIZATION WITH CORONARY ANGIOGRAPHY AND WITH AND WITHOUT LEFT VENTRICULOGRAM (11/15/2024 9:48 AM MANUFACTURING PROCESS ENGINEER) Anatomical Region Laterality Modality X-Ray Angiograph y Narrative 11/15/2024 10:38 AM MANUFACTURING PROCESS ENGINEER Images from the original result were not included. [facility] Cardiology [id number] [place], [place], [address] Left Heart Catheterization Procedure Report 64 year [...] and draped in sterile fashion. A 6 [place] sheath was inserted in the Right Radial [...] inal Result * eGFR (11/07/2024 9:21 AM MANUFACTURING PROCESS ENGINEER) [facility] eGFR >90 >=60 mL/min/1. 73 m2 Comment: [...] last reviewed 2021. Blood 11/07/2024 9:21 AM MANUFACTURING PROCESS ENGINEER 11/07/2024 9:24 AM MANUFACTURING PROCESS ENGINEER Tessie Lopez MD LAB BLOOD ORDERABLES Final R esult [facility] [address] Department [place] [address] * Differential, auto (11/07/2024 9:21 AM MANUFACTURING PROCESS ENGINEER) Pathologist [facility] Neutrophil abs 4.3 1.5 - 6.5 K/cumm Imm gran abs 0.0 0.0 - 0.1 K/cumm [facility] Lymphocyte abs 2.7 0.8 - 3.3 K/cumm [facility] Monocyte abs 0.6 0.2 - 0.8 K/cumm [facility] Eosinophil abs 0.1 0.0 - 0.5 K/cumm [facility] Basophil abs 0.1 0.0 - 0.1 K/cumm [facility] Neutrophil pct 55.1 % [facility] Comment: Interpretive Data Percent cell count reference ranges are not reported, since discordance with absolute values may lead to misinterpretation of CBC data. Current Interpretive Data was last revised on 2018. Imm gran pct 0.4 % [facility] Comment: Interpretive Data Percent cell count reference ranges are not reported, since discordance with absolute values may lead to misinterpretation of CBC data. Current Interpretive Data was last revised on 2018. Lymphocyte pct 34.5 % [facility] Comment: Interpretive Data Percent cell count reference ranges are not reported, since discordance with absolute values may lead to misinterpretation of CBC data. Current Interpretive Data was last revised on 2018. Monocyte pct 7.5 % [facility] Comment: Interpretive Data Percent cell count reference ranges are not reported, since discordance with absolute values may lead to misinterpretation of CBC data. Current Interpretive Data was last revised on 2018. Eosinophil pct 1.7 % [facility] Comment: Interpretive Data Percent cell count reference ranges are not reported, since discordance with absolute values may lead to misinterpretation of CBC data. Current Interpretive Data was last revised on 2018. Basophil pct 0.8 % [facility] Comment: Interpretive Data Percent cell count reference ranges are not reported, since discordance with absolute values may lead to misinterpretation of CBC data. Current Interpretive Data was last revised on 2018. Blood 11/07/2024 9:21 AM MANUFACTURING PROCESS ENGINEER 11/07/2024 9:24 AM MANUFACTURING PROCESS ENGINEER us Tessie Lopez MD LAB BLOOD ORDERABLES Final R esult [facility] [address] Department [place] [address] * (ABNORMAL) CBC with auto differential (11/07/2024 9:21 AM MANUFACTURING PROCESS ENGINEER) WBC 7.9 3.8 - 9.9 K/cumm Hgb 14.9 11.9 - 15.5 g/dL [facility] Hct 46.3(H) 35.6 - 45.5 % [facility] Plt 313 150 - 400 K/cumm [facility] MPV 8.8(L) 9.1 - 12.3 fL [facility] RBC 5.01 3.90 - 5.20 M/cumm [facility] MCV 92.4 81.3 - 96.4 fL [facility] MCH 29.7 27.1 - 33.3 pg [facility] MCHC 32.2(L) 32.3 - 35.7 g/dL [facility] RDW CV 13.4 11.1 - 14.9 % [facility] RDW SD 45.7 35.7 - 48.1 fL [facility] NRBC abs 0.00 0.00 - 0.01 K/cumm [facility] Blood 11/07/2024 9:21 AM MANUFACTURING PROCESS ENGINEER 11/07/2024 9:24 AM MANUFACTURING PROCESS ENGINEER us Tessie Lopez MD LAB BLOOD ORDERABLES Final R esult Performing Organization Address City/[facility] Co de Phone Number [facility] [address] [place] [address] * Protime-INR (11/07/2024 9:21 AM MANUFACTURING PROCESS ENGINEER) PT 11.3 9.7 - 13.0 sec INR 1.05 0.90 - 1.20 [facility] Comment: Interpretive data Oral anticoagulant therapeutic ranges: Venous thromboembolism prophylaxis or treatment: 2.0-3.0 CARDIOLOGY Standard range: 2.0-3.0 High-intensity range: 2.5-3.5 Refer to indication-specific guidelines for appropriate target ranges for prosthetic heart valve replacement. Current interpretive data was last revised on 2019. Blood 11/07/2024 9:21 AM MANUFACTURING PROCESS ENGINEER 11/07/2024 9:24 AM MANUFACTURING PROCESS ENGINEER us Tessie Lopez MD LAB BLOOD ORDERABLES Final R esult Performing Organization Address City/[facility]/ZIP Co de Phone Number [facility] [address] [place] [address] * Basic metabolic panel (11/07/2024 9:21 AM MANUFACTURING PROCESS ENGINEER) Sodium 140 135 - 145 mmol/L Potassium, pl 4.4 3.3 - 4.9 mmol/L [facility] Chloride 104 97 - 110 mmol/L [facility] CO2 26 22 - 32 mmol/L [facility] Anion gap 10 2 - 15 mmol/L [facility] BUN 14 6 - 25 mg/dL [facility] Creatinine 0.67 0.60 - 1.10 mg/dL [facility] Glucose 120 70 - 199 mg/dL [facility] Comment: Interpretive Data Fasting glucose [...] 2022. Calcium 9.3 8.5 - 10.3 mg/dL [facility] Blood 11/07/2024 9:21 AM MANUFACTURING PROCESS ENGINEER 11/07/2024 9:24 AM MANUFACTURING PROCESS ENGINEER us Tessie Lopez MD LAB BLOOD ORDERABLES Final R esult [facility] [address] Department [place] [address] from Last 3 Months Insurance [employer] Advance Directives For more information, please contact: [phone] * Full Code (Latest Code Status on File) Date Activated Date Inactivated Comments 11/15/2024 10:09 AM 11/15/2024 4:35 PM * Full Code Date Activated Date Inactivated Comments 03/11/2023 4:40 AM 03/12/2023 11:30 PM * Full Code Date Activated Date Inactivated Comments 03/12/2020 5:24 AM 03/13/2020 3:20 PM * Full Code Date Activated Date Inactivated Comments 02/26/2018 2:44 PM 02/26/2018 8:05 PM Care Teams Consumer Experience Consultant Relationship Specialty Start Date End Date Javier Gutierrez MD [address] [place] [address] [place] [address] PCP - General Family Medicine 07/19/24
--- NOTE | 2025-01-22 23:06 | ED.LOWEXIN ---
HPI - Extremity Injury (Lower) General Chief Complaint: Extremity Injury, Lower Stated Complaint: left calf pain and swelling Time Seen by Provider: 01/22/25 22:48 Source: patient Mode of arrival: ambulatory Limitations: no limitations History of Present Illness HPI Narrative: This is a 64-year-old female that presents to the emergency department for left calf pain. Reports she was walking up a hill. She felt a pop in her left calf. Since she has had pain and swelling. Pain is worse with ambulation. She has been attempting to rest and ice with little relief. Related Data Home Medications ?Medication ?Instructions ?Recorded ?Confirmed ?Last Taken ?Type rosuvastatin 10 mg tablet 10 mg PO DAILY 09/08/19 08/08/24 Unknown History apixaban 5 mg tablet (Eliquis) 5 mg PO BID 09/20/21 08/08/24 Unknown History metoprolol tartrate 25 mg tablet 12.5 mg PO BID 07/09/23 08/08/24 Unknown History amoxicillin 875 mg-potassium 1 tablet PO BID PRN 08/08/24 08/08/24 Unknown History clavulanate 125 mg tablet Allergies Allergy/AdvReac Type Severity Reaction Status Date / Time sulfamethoxazole (From Allergy Intermediate Hives Verified 08/08/24 14:10 Bactrim) trimethoprim (From Bactrim) Allergy Intermediate Hives Verified 08/08/24 14:10 ciprofloxacin Allergy Unknown Nausea Verified 08/08/24 14:10 fluoxetine Allergy Unknown Asthma Verified 08/08/24 14:10 Sulfa (Sulfonamide Allergy Unknown Unknown Verified 08/08/24 14:10 Antibiotics) sulfamethizole Allergy Unknown Unknown Verified 08/08/24 14:10 Review of Systems Review of Systems: CONSTITUTIONAL: Denies fever MUSCULOSKELETAL: Reports myalgia. NEUROLOGIC: Denies numbness All systems reviewed & are unremarkable except as noted in HPI and below PMFSH Past Medical History Medical History Afib Degenerative joint disease of knee Depression Hypercholesterolemia Hyperlipemia Hypertension Left knee pain Obesity Postmenopausal bleeding Recurrent sinusitis Right knee pain Unspecified internal derangement of left knee Surgical History Surgical History History of radiofrequency ablation procedure for cardiac arrhythmia Hx of eye surgery states hx of multiple eye surgeries S/P cervical spinal fusion states c4-6 fusion 1998 Family History Family History Grandparent Hypertension Family history of elevated blood lipids Family history of coronary artery disease, Onset Age: 72 Other Family history of malignant melanoma Social History Social History Smoking status: Never smoker Second hand tobacco smoke exposure: No Alcohol intake: current Drinks per week: 0 Substance use type: does not use Lack of Transportation: No Lack of Food: Never True Current Housing: I Have Housing Concerned About Future Housing: No Difficulty Paying Gas/Electric Bills: No Difficulty Paying for Meds: No Currently Unemployed: No Education: Associate Degree Difficulty w/ Childcare or Family Care: No Living arrangements: alone Occupation/Education: occupation Gender identity (if verbalized by the patient): Female Spiritual care concerns: No Agree to blood products: Yes Exam Narrative: GENERAL: Well-appearing, well-nourished, and in no acute distress. HEAD: Normocephalic, atraumatic. EYES: EOMI. CHEST: No respiratory distress. HEART: Regular rate EXTREMITIES: Normal range of motion. No edema, erythema. Compartments are soft. Normal DP pulse SKIN: Warm, dry, no rash. NEURO: No focal deficits. Alert and oriented x3. PSYCH: Normal mood and affect Course Vital Signs Vital signs: Vital Signs Temperature 97.9 F 01/22/25 20:08 Pulse Rate 73 01/22/25 20:08 Respiratory Rate 20 01/22/25 20:08 Blood Pressure 144/78 H 01/22/25 20:08 Pulse Oximetry 100 01/22/25 20:08 Oxygen Delivery Room Air 01/22/25 20:08 Temperature 97.9 F 01/22/25 20:08 Pulse Rate 77 01/22/25 23:33 Respiratory Rate 15 01/22/25 23:33 Blood Pressure 138/64 01/22/25 23:33 Pulse Oximetry 100 01/22/25 23:33 Oxygen Delivery Room Air 01/22/25 20:08 MDM - Extremity Injury (Lower) MDM Narrative Medical decision making narrative: Patient presents the emergency department for symptoms of a left calf strain. Her compartments are soft. She is neurovascularly intact. Instructed on further care of muscle strain. Placed in CATHY wrap. Will be given follow up with orthopedics. She was given warnings to return to the ER Differential Diagnosis Differential diagnosis: Likely other (Muscle strain) Critical Care Time Critical Care Time Critical Care Time: No Discharge Plan Discharge Clinical Impression: Strain of left calf muscle Patient Disposition: Home, Self-Care Condition: Stable Instructions: Muscle Strain (ED) Additional Instructions: Return to the ER if you experience fever, redness and swelling of your extremity, numbness or any other symptoms that are concerning to you Wear CATHY wrap. No weight on the affected leg until able to bear weight without pain. Ice and elevate extremity. Pain medication as needed and directed. Follow up with orthopedics for further care. Patient Language: Micronesian Prescriptions: New cyclobenzaprine 10 mg tablet 10 mg PO TID PRN (Reason: muscle spasm) Qty: 14 0RF No Action Eliquis 5 mg tablet 5 mg PO BID metoprolol tartrate 25 mg tablet 12.5 mg PO BID amoxicillin-pot clavulanate 875-125 mg tablet 1 tablet PO BID PRN Rx Instructions: Just in case needed levalbuterol HCl 1.25 mg/3 mL solution for nebulization 1.25 mg inhalation Q4H PRN (Reason: shortness of breath or wheezing) Qty: 90 2RF Arnuity Ellipta 50 mcg/actuation blister with device 1 inh inhalation DAILY Qty: 30 0RF rosuvastatin 10 mg Tablet 10 mg PO DAILY Follow-up/Referrals: Farhat Barreto MD [Physician] - Javier Gutierrez MD [Primary Care Provider] - Stand Alone Forms: Work/School Release IP
[2025-01-22 23:33] VITALS: BP 138/64; PULSE 77; RESP 15; O2SAT 100
== END 2025-01-22 23:34 | disposition home or self-care (01) ==
PROVIDERS: Emergency Provider Physician Assistant; PCP Family Medicine
DX: S86.812A Strain of other muscle(s) and tendon(s) at lower leg level, left leg, initial encounter (principal); X58.XXXA Exposure to other specified factors, initial encounter; Z79.01 Long term (current) use of anticoagulants; I48.91 Unspecified atrial fibrillation; E78.5 Hyperlipidemia, unspecified; I10 Essential (primary) hypertension
CPT/HCPCS: 99282

== ENCOUNTER 2025-01-27 10:29 | Outpatient (CLI) | payer OTHER, SELFPAY ==
--- NOTE | ~2025-01-27 | MR_ITS ---
EXAMINATION: MR lower leg LT wo con DATE: 01/27/2025 11:18 INDICATION: Heterogeneous tendon rupture TECHNIQUE: Magnetic resonance imaging (MRI) of the left lower leg was performed without intravenous c ontrast. A marker was placed over the mass. Sequences included axial, sagittal and coronal T1-weight ed FSE and fluid sensitive FSE STIR were also obtained. COMPARISON: Radiographs dated 01/23/2025 FINDINGS: There is a stairstep pattern tear along the myotendinous junction of the medial head of the gastrocne mius muscle and its deeper aponeurosis which begins at the lateral side of the aponeurosis proximally and progresses 14 cm distally distally and medially across the aponeurosis to the distal margin of t he myotendinous junction. There is approximately 2.5 cm proximal retraction of the distal margin of t he tear of the aponeurosis. There is feathery intramuscular edema throughout the medial head of the g astrocnemius muscle. The lateral head of the gastrocnemius muscle and underlying soleus muscle remain s normal. There is mild tendinosis without discrete tear or distally at the Achilles tendon. The musc ulature in the anterior, lateral and deep posterior compartments of the left calf are normal. Bone ma rrow signal is normal throughout with no fracture or pathologic marrow replacing process. IMPRESSION: 1. Gastrocnemius muscle strain with tear along the myotendinous junction and extending across the apo neurosis of the medial hypogastric venous muscle extending 14 cm in length. Reviewed, dictated and finalized at location B. IMPRESSION: 1. Gastrocnemius muscle strain with tear along the myotendinous junction and ex tending across the aponeurosis of the medial hypogastric venous muscle extendin g 14 cm in length.
== END 2025-01-27 10:30 | disposition home or self-care (01) ==
LOC: GOSHIMG 10:31
PROVIDERS: PCP Family Medicine; Visit Provider Orthopaedic Surgery
DX: S86.119A Strain of other muscle(s) and tendon(s) of posterior muscle group at lower leg level, unspecified leg, initial encounter (principal); X58.XXXA Exposure to other specified factors, initial encounter
CPT/HCPCS: 73718

== ENCOUNTER 2025-05-14 11:40 | Emergency (ER) | payer OTHER, SELFPAY ==
--- NOTE | ~2025-05-14 | XR_ITS ---
CHEST RADIOGRAPH, PA AND LATERAL CLINICAL HISTORY: cough sob fever . COMPARISON: 07/23/2022 TECHNIQUE: PA and lateral views of the chest. FINDINGS The cardiomediastinal silhouette is unremarkable. The lungs are clear. IMPRESSION: No focal infiltrate or effusion. Reviewed, dictated and finalized at location A.
[2025-05-14 11:53] VITALS: BP 124/71; PULSE 69; RESP 16; TEMP 36.1; O2SAT 99
--- NOTE | 2025-05-14 12:04 | ED.URI ---
HPI - URI/Sore Throat General Chief Complaint: Upper Respiratory Infection Stated Complaint: SOB/Tightness in chest/Congestion Time Seen by Provider: 05/14/25 12:05 Source: patient Mode of arrival: ambulatory Limitations: no limitations History of Present Illness HPI Narrative: 64 y/o female with hx afib and HTN presented for c/o cough and chest congestion for one week. Endorses associated sob with exertion, and feels left sternal chest pain with coughing, and feels 'clammy.' The past few days she developed nasal congestion and bilateral ear pressure. Denies palpitations, wheezing, n/v/d. Taking mucinex and used a nebulizer without improvement. Pt does not have inhalers. Related Data Home Medications ?Medication ?Instructions ?Recorded ?Confirmed ?Last Taken ?Type rosuvastatin 10 mg tablet 10 mg PO DAILY 09/08/19 03/09/25 Unknown History apixaban 5 mg tablet (Eliquis) 5 mg PO BID 09/20/21 03/09/25 Unknown History metoprolol tartrate 25 mg tablet 12.5 mg PO BID 07/09/23 03/09/25 Unknown History diazepam 5 mg tablet 5 mg PO ONCE PRN anxiety 01/25/25 03/09/25 Unknown History Allergies Allergy/AdvReac Type Severity Reaction Status Date / Time sulfamethoxazole (From Allergy Intermediate Hives Verified 05/14/25 11:53 Bactrim) trimethoprim (From Bactrim) Allergy Intermediate Hives Verified 05/14/25 11:53 ciprofloxacin Allergy Unknown Nausea Verified 05/14/25 11:53 fluoxetine Allergy Unknown Asthma Verified 05/14/25 11:53 Sulfa (Sulfonamide Allergy Unknown Unknown Verified 05/14/25 11:53 Antibiotics) sulfamethizole Allergy Unknown Unknown Verified 05/14/25 11:53 Review of Systems Review of Systems: CONSTITUTIONAL: Denies body aches, fever, chills, or sweats. EYES: Denies visual changes, redness, or discharge. ENT: reports rhinorrhea, congestion, otalgia. CARDIOVASCULAR: Denies chest pain, palpitations, or edema. RESPIRATORY: Reports cough, sob, denies wheezing. GASTROINTESTINAL: Denies abdominal pain, nausea, vomiting, or diarrhea. SKIN: Denies rash MUSCULOSKELETAL: Denies back pain, joint pain, or myalgia. NEUROLOGIC: Denies headache, numbness, tingling, or weakness. All systems reviewed & are unremarkable except as noted in HPI and below PMFSH Past Medical History Medical History Degenerative joint disease of knee Left knee pain Right knee pain Unspecified internal derangement of left knee Recurrent sinusitis Postmenopausal bleeding Obesity Hypercholesterolemia Afib Hyperlipemia Depression Hypertension Surgical History Surgical History History of radiofrequency ablation procedure for cardiac arrhythmia Hx of eye surgery states hx of multiple eye surgeries S/P cervical spinal fusion states c4-6 fusion 1998 Family History Family History Grandparent Hypertension Family history of elevated blood lipids Family history of coronary artery disease, Onset Age: 72 Other Family history of malignant melanoma Social History Social History Smoking status: Never smoker Second hand tobacco smoke exposure: No Alcohol intake: current Drinks per week: 0 Substance use type: does not use Lack of Transportation: No Lack of Food: Never True Current Housing: I Have Housing Concerned About Future Housing: No Difficulty Paying Gas/Electric Bills: No Difficulty Paying for Meds: No Currently Unemployed: No Education: Associate Degree Difficulty w/ Childcare or Family Care: No Living arrangements: alone Occupation/Education: occupation Gender identity (if verbalized by the patient): Female Spiritual care concerns: No Agree to blood products: Yes Comments At time of signature, I have reviewed and agree with nursing past medical, surgical, social and family history unless otherwise noted. Please see nursing chart for further information. There is no relevant family history pertinent to the presenting complaint Exam Narrative: GENERAL: Well-appearing, in no acute distress. EYES: EOMI. No redness or drainage. Conjunctivae normal. ENT: Mucous membranes pink and moist. congestion and rhinorrhea. TMs unable to visualize due to excess cerumen bilaterally. Throat normal. Uvula midline. NECK: Normal AROM. Supple. CHEST: No respiratory distress. Speaks full sentences, lungs are clear throughout HEART: Regular rate and rhythm. EXTREMITIES: Normal range of motion. No edema. SKIN: Warm, dry, no rash. Capillary refill normal. Normal skin turgor. NEURO: Alert and oriented x3. Gait steady. PSYCH: Normal affect. Course Course Emergency Course: Patient is aware of diagnosis, understands and agrees to treatment plan. Anticipatory guidance given. Patient agrees to follow-up as directed and is aware of reasons to seek care at the emergency department. Portions of this record may have been created with voice recognition software Level of Care: Express Care Visit Vital Signs Vital signs: Vital Signs Temperature 97 F L 05/14/25 11:53 Pulse Rate 69 05/14/25 11:53 Respiratory Rate 16 05/14/25 11:53 Blood Pressure 124/71 05/14/25 11:53 Pulse Oximetry 99 05/14/25 11:53 Temperature 97 F L 05/14/25 11:53 Pulse Rate 69 05/14/25 11:53 Respiratory Rate 16 05/14/25 11:53 Blood Pressure 124/71 05/14/25 11:53 Pulse Oximetry 99 05/14/25 11:53 MDM - URI/Sore Throat MDM Narrative Medical decision making narrative: Discussed physical exam findings and CXR. Reviewed RX. Advised supportive measures and signs/symptoms to go to the ER. Pt is appropriate for outpt treatment and f/u. Differential Diagnosis Differential diagnosis: Likely upper respiratory infection, sinusitis, viral infection, bronchitis, pharyngitis and other (Angioedema, perforation, asthma, pneumonia, PE, tension pneumothorax, cardiac tamponade DE, pericarditis, pleural effusion, CHF, bronchitis, cardiac arrhythmia) Imaging Data Radiologist's impression: Patient: Sunita Gage : 1960 MR#: [id number] Age: 64 Acct:[id number] Loc: [facility] ADM Date: 05/14/25Attending Dr: CHEST RADIOGRAPH, PA AND LATERAL CLINICAL HISTORY: cough sob fever . COMPARISON: 07/23/2022 TECHNIQUE: PA and lateral views of the chest. FINDINGS The cardiomediastinal silhouette is unremarkable. The lungs are clear. IMPRESSION: No focal infiltrate or effusion. Discharge Plan Discharge Clinical Impression: Bronchitis Patient Disposition: Home Condition: Stable Instructions: Antibiotic Form, Acute Bronchitis (ED) Additional Instructions: Acute bronchitis can be contagious because it is usually caused by infection with a virus or bacteria. It is usually for a few days but you can be contagious for up to one week. Avoid crowds until you do not have a fever and symptoms are improved Take medication as directed Recommendations: Flonase spray and Zyrtec (or Claritin/Sarina) over the counter Cough syrup may cause drowsiness; avoid driving or take it at night time. Tylenol every 8 hours as needed for pain Use albuterol inhaler as previously prescribed Symptomatic treatment includes: rest, fluids, and increase humidity of the air at home. Follow up with your primary care provider as needed in 1 week Go to the ER for worsening symptoms or concerns Patient Language: Bruneian Prescriptions: New methylprednisolone [Medrol (Leopoldo)] 4 mg tablets,dose pack See Rx Instructions .ROUTE .COMPLEX Qty: 21 0RF Rx Instructions: orally per package directions amoxicillin-pot clavulanate 875-125 mg tablet 1 tablet PO Q12H 7 Days Qty: 14 0RF No Action Eliquis 5 mg tablet 5 mg PO BID metoprolol tartrate 25 mg tablet 12.5 mg PO BID levalbuterol HCl 1.25 mg/3 mL solution for nebulization 1.25 mg inhalation Q4H PRN (Reason: shortness of breath or wheezing) Qty: 90 2RF Arnuity Ellipta 50 mcg/actuation blister with device 1 inh inhalation DAILY Qty: 30 0RF diazepam 5 mg tablet 5 mg PO ONCE PRN (Reason: anxiety) Rx Instructions: #2 0RF Pt take 1 tablet 1 hour prior to MRI. If no effect, she may take the 2nd tab. 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
== END 2025-05-14 12:42 | disposition home or self-care (01) ==
PROVIDERS: Emergency Provider Nurse Practitioner Family; PCP Family Medicine
DX: J40 Bronchitis, not specified as acute or chronic (principal); I10 Essential (primary) hypertension; E78.5 Hyperlipidemia, unspecified; I48.91 Unspecified atrial fibrillation; E78.00 Pure hypercholesterolemia, unspecified; E66.9 Obesity, unspecified; Z79.01 Long term (current) use of anticoagulants
CPT/HCPCS: 71046; 99213; G0463